=== PATIENT | female | born 1945 | race Caucasian/White ===

== ENCOUNTER 2018-10-15 12:37 | Observation (INO) | payer MEDICARE, SELFPAY ==
[2018-10-15 12:38] VITALS: BP 118/70; PULSE 65; RESP 16; TEMP 36.2; O2SAT 99; BMI 30.9
--- NOTE | 2018-10-15 13:02 | CT_ITS ---
STUDY: CT BRAIN WITHOUT CONTRAST REASON FOR EXAM: Female, 73 years old. Dizziness. History of vertigo. RADIATION DOSAGE (If Supplied By Facility): CTDIvol = ( 44.99 ) mGy, DLP = ( 779.24 ) mGycm TECHNIQUE: Transaxial CT imaging of the brain was performed without administration of intravenous contrast material. Individualized dose optimization techniques were used for this CT. COMPARISON: October 26, 2015. MRI, October 27, 2015. FINDINGS: Normal soft tissue structures. Normal calvarium. Normal size ventricles and extra-axial spaces for the patient's age. Normal white matter tracts of the cerebral hemispheres. Normal basal ganglia and thalami. Normal brainstem. Normal cerebellum. There is no intracranial hemorrhage. There are no findings of an acute ischemic infarction. Normal visualized paranasal sinuses. CT/Brain/Head without Contrast IMPRESSION: Normal unenhanced CT scan of the brain. Electronically Signed: Deangelo Hoff DO at 15:08 EDT Tel [phone], Service support ,
--- NOTE | 2018-10-15 13:04 | ED.DCSUM_ITS ---
- ER Visit Summary Date of Service: 10/15/18 Chief Complaint: Dizzy History of Present Illness: The patient is a 73 F sudden dizzy with room spinning after waking at 6 AM. Worse with head turning. Nausea without vomiting. Chronic tinnitus. History of Cipro years ago. She has done meclizine in the past and she is on Ativan for anxiety at least twice a day. None taken today. History of TIA in the past there is been no speech changes or hemiparesis or weakness. No recent sinus congestion or ear pain. No chest pain or shortness of breath. Physical Examination: General: Alert and oriented ?3, no acute distress HEENT: Normocephalic, atraumatic. Moist mucosa membranes. No nystagmus Neck: supple, nontender. Cardiovascular: Regular rate and rhythm, no murmurs Respiratory: Normal breath sounds, symmetric, no distress Abdomen: Soft, nontender, nondistended Extremities: Nontender, no edema, pulses intact ?4 Neuro: no focal neurological deficits. Negative Lucas-Hallpike bilaterally, however symptomatic with laying down and sitting up. Test Results: CT head negative. Hemoglobin 15, potassium 3.7 creatinine 0.88. Emergency Department Course and Treatment: Vital signs stable, no focal neurological deficits. She did have vertigo symptoms without nystagmus. [place]- Hallpike was negative. Treated with IV fluids, Phenergan labs stable. CT head negative. Reevaluation states mild improvement after Phenergan however still feels symptoms. Attempt to ambulate the patient myself in the room to the restroom she is unstable. With continued symptomatic vertigo, will speak with hospitalist for admission. Treatment Plan: [] Disposition: Admission Impression: Symptomatic vertigo This note was generated with [employer] dictation software. It may contain incorrect words, spelling, and punctuation that were not noted in review of the chart prior to signing ED Disposition - Plan for ED Patient: Disposition: Acute Care Hospital [facility] Diagnosis: Symptomatic vertigo Referrals: Jorge Carbajal DO [Primary Care Provider] -
--- NOTE | 2018-10-15 13:24 | EKG12_ITS ---
Test Reason : DIZZINESS Blood Pressure : / mmHG Vent. Rate : 074 BPM Atrial Rate : 074 BPM P-R Int : 166 ms QRS Dur : 082 ms QT Int : 426 ms P-R-T Axes : 092 009 038 degrees QTc Int : 472 ms Normal sinus rhythm Nonspecific ST and T wave abnormality Prolonged QT Abnormal ECG Confirmed by RITO RAMSAY, LOU ([id number]), video effects editor PASCALE CATHERINE ([id number]) on 10/17/2018 11:25:15 AM Referred By: Jose Day Confirmed By:LOU VERAS MD
[2018-10-15] MEDS: proMETHazine 25 MG/ML Syringe 6.25 MG IV (13:35)
[2018-10-15 13:44] LABS: Absolute Lymphocyte Count 0.94 X10^3/ul (0.83-4.51); Absolute Neutrophil Count 5.2 X10^3/uL (2.0-7.7); Basophil# 0.03 X10^3/uL; Basophil% 0.4 % (0-1); Eosinophil# 0.05 X10^3/uL; Eosinophils% 0.7 % (0-5); Hematocrit 45.8 % (37-47); Hemoglobin 15.1 g/dl (12.0-15.0); Lymphocyte # 0.94 X10^3/ul (4.0); Lymphocyte % 13.6 % (19-41); Mean Corpuscular Hgb 29.7 pg (27.0-32.0); Mean Platelet Vol. 9.3 fl (6.2-12.0); Monocyte# 0.72 X10^3/uL; Monocyte% 10.4 % (0-10); Neutrophil # 5.15 X10^3/uL (2.7-7.7); Neutrophil % 74.8 % (47-70); POSITIVE COUNT NO; POSITIVE DIFFERENTIAL NO; POSITIVE MORPHOLOGY NO; Platelet Count 311 K/mm3 (150-450); RBC Distribution Width SD 42.6 fl (35.1-43.9); Red Blood Count 5.09 M/mm3 (4.2-5.4); White Blood Count 6.9 K/mm3 (4.4-11.0)
[2018-10-15 14:01] LABS: Anion Gap 9 (5-15); BUN 14 mg/dL (7-18); BUN/Creat Ratio 15.8 RATIO (10-20); Calcium,Total 9.8 mg/dL (8.5-10.1); Chloride 108 mmol/L (98-107); Creatinine, Serum 0.88 mg/dL (0.55-1.02); EST Glomerular Filtration Rate 67 mL/min (>60); Est Glom Filt Rate - Afr Amer 81 mL/min (>60); Glucose 103 mg/dL (74-106); Potassium 3.7 mmol/L (3.5-5.1); Sodium Level 140 mmol/L (136-145)
[2018-10-15 14:50] VITALS: BP 147/63; PULSE 78; RESP 15; O2SAT 94
--- NOTE | 2018-10-15 16:38 | PCM.HP.STD ---
<John Barone - Last Filed: 10/15/18 16:38> Problem List (1) Vertigo Status: Acute (2) Tinnitus Status: Chronic (3) TIA (transient ischemic attack) Status: Chronic (4) Diabetes mellitus Status: Chronic Comment: Diet controlled (5) Mild intermittent asthma Status: Chronic History of Present Illness Date of Admission: 10/15/18 Chief Complaint: vertigo The patient is a 73 year old F with a pmhx of chronic vertigo, TIA, asthma, anxiety, who presents to the ER with worsening of vertigo. Her chronic veritgo has been controlled lately, this AM she woke up and got out of bed, and on standing, she experienced a severe spinning sensation. She fell into a wall and did not injure herself. She attempted to do home lesia maneuvers but this did not help. Her symptoms are worse with moving her head to either side and better sitting still. She had some nausea without vomiting. She later in the ER had a brief episode where her left arm felt suddenly weak and numb that went completely away, followed by both legs going numb and then resolving. No double vision or blurry vision. She currently has no focal weakness or numbness.[] Past Medical History Past Medical History (Chronic Problems): Chronic Problems Tinnitus (Chronic) TIA (transient ischemic attack) (Chronic) Dependent edema (Chronic) Mild intermittent asthma (Chronic) Diabetes mellitus (Chronic) Diet controlled Allergies azithromycin [From Zithromax] Allergy (Verified 10/15/18 12:46) Hives Sulfa (Sulfonamide Antibiotics) Allergy (Verified 10/15/18 12:46) Hives Home Medications: Ambulatory Orders Medication Instructions Recorded Albuterol Aerosols [Ventolin 2.5 mg INHALATION DAILY 10/26/15 Aerosols] Calcium Carbonate [Calcium] 600 mg PO BID 10/26/15 Cholecalciferol (VIT D3) [Vitamin 2,000 unit PO DAILY 10/26/15 D3] Lorazepam [Ativan] 0.5 mg PO TID PRN PRN 10/26/15 Montelukast [Singulair] 10 mg PO QHS 10/26/15 [place]-3 Fatty Acids [Fish Oil] 1,200 mg PO DAILY 10/26/15 Vitamin B Complex 1 each PO DAILY 10/26/15 Aspirin E.C. [Ecotrin] 81 mg PO DAILY@0800 #30 tablet 04/03/16 Atorvastatin Calcium [Lipitor] 10 mg PO QHS 06/19/16 Surgical History: arthroscopy, knee, hysterectomy, - - Bilateral carpal tunnel release RAY BSO bilateral cataract extraction tonsillectomy remote right and left knee arthroscopy, remote Psychiatric History: Anxiety [employer] History: No pertinent [employer] history Lives: Spouse/ Significant Other Smoking Status: Never smoker Tobacco Use: Non-smoker Alcohol: None Drugs: None - *Family History Paternal History Items: Diabetes, Dementia, Heart Disease, Stroke Maternal History Items: - - Migraines cervical cancer Review of Systems Constitutional: Denies: Chills, Fever, Weight Change HEENT: Denies: Head Aches, Sinus Congestion, Sinus Drainage Cardiovascular: Denies: Chest Pain, Palpitations Respiratory: Denies: Cough, Shortness of breath at rest, Sputum production Gastrointestinal: Denies: Abdominal Pain, Nausea, Vomiting Genitourinary: Denies: Dysuria Musculoskeletal: Denies: Joint Pain, Joint Tenderness Skin: Denies: Rash, Wounds Neurological: Reports: Balance problems, Focal weakness, Incoordination, Numbness. Denies: Blurred vision, Double vision, Slurred speech, Confusion, Tingling Psychiatric: Denies: Anxiety, Depression, Homicidal Ideations, Suicidal Ideations Hematologic/ Lymphatic: Denies: Easy Bruising, Easy Bleeding VTE Information - Inpt Only VTE Present on Admission: No VTE Mechan Device Prophylaxis: None VTE Pharm Prophylaxis ordered?: Yes - Physical Exam General: Alert, Oriented x3, Cooperative HEENT: Atraumatic, PERRLA, EOMI, Normocephalic Neck: Supple, No JVD, Negative Carotid Bruits Lungs: Clear to auscultation, Normal air movement Cardiovascular: Regular rate, No murmurs Abdomen: Bowel Sounds Present, Soft, Non Tender Extremities: No edema, Capillary Refill Less than 3 Seconds Skin: No rashes, No breakdown Musculoskeletal: No Tenderness to Palpation of Joints or Extremities Neurological: Cranial nerves II-XII grossly intact Psych/Mental Status: Normal Affect, Appropriate, Alert and oriented to time, place, person, mood and affect Vital Signs Temp Pulse Resp BP Pulse Ox 97.2 F L 78 15 147/63 H 94 10/15/18 12:38 10/15/18 14:50 10/15/18 14:50 10/15/18 14:50 10/15/18 14:50 Oxygen Delivery Method Room Air Weight: 175 lb Body Mass Index (BMI) 30.9 Finger Stick Blood Glucose 98 Laboratory Tests Past 24 Hrs 10/15/18 10/15/18 13:35 13:35 WBC 6.9 RBC 5.09 Hgb 15.1 H Hct 45.8 MCV 90.0 MCH 29.7 MCHC 33.0 RDW 13.0 RDW Differential 42.6 Plt Count 311 MPV 9.3 Immature Gran % (Auto) 0.100 Neut % (Auto) 74.8 H Lymph % (Auto) 13.6 L Harris % (Auto) 10.4 H Eos % (Auto) 0.7 Baso % (Auto) 0.4 Absolute Neuts (auto) 5.2 Absolute Lymphs (auto) 0.94 Total Counted Not Reportable Sodium 140 Potassium 3.7 Chloride 108 H Carbon Dioxide 23.0 Anion Gap 9 BUN 14 Creatinine 0.88 Estim Creat Clear Calc 47.80 Est GFR (MDRD) Af Amer 81 Est GFR (MDRD) Non-Af 67 BUN/Creatinine Ratio 15.8 Glucose 103 Calcium 9.8 Assessment/Plan All Active Problems Vertigo (Acute) 1. Vertigo - Hx BPPV. Also did have left arm numbness/weakness transiently. CT brain negative. Check MRI. Hx TIA. On asa/statin already. Neuro exam negative at this time. Labs unremarkable. Lesia maneuvers at home did not help. 2. Chronic tinnitus 3. Asthma - chronic cough. PRN aerosols. Continue singulair. 4. DMt2 - diet controlled 5. Anxiety - has been on prn ativan at home. Did not take any today. DVT ppx: lovenox DC planning: PTOT evals. Fell at home today This patient was seen by John Barone PA-C under the supervision of Dr. Day. <Jose Day F - Last Filed: 10/15/18 17:01> History of Present Illness The patient is a 73 year old F [] Past Medical History Allergies azithromycin [From Zithromax] Allergy (Verified 10/15/18 12:46) Hives Sulfa (Sulfonamide Antibiotics) Allergy (Verified 10/15/18 12:46) Hives - Physical Exam Vital Signs Temp Pulse Resp BP Pulse Ox 97.2 F L 78 15 147/63 H 94 10/15/18 12:38 10/15/18 14:50 10/15/18 14:50 10/15/18 14:50 10/15/18 14:50 Oxygen Delivery Method Room Air Weight: 175 lb Body Mass Index (BMI) 30.9 Finger Stick Blood Glucose 98 Laboratory Tests Past 24 Hrs 10/15/18 10/15/18 13:35 13:35 WBC 6.9 RBC 5.09 Hgb 15.1 H Hct 45.8 MCV 90.0 MCH 29.7 MCHC 33.0 RDW 13.0 RDW Differential 42.6 Plt Count 311 MPV 9.3 Immature Gran % (Auto) 0.100 Neut % (Auto) 74.8 H Lymph % (Auto) 13.6 L Harris % (Auto) 10.4 H Eos % (Auto) 0.7 Baso % (Auto) 0.4 Absolute Neuts (auto) 5.2 Absolute Lymphs (auto) 0.94 Total Counted Not Reportable Sodium 140 Potassium 3.7 Chloride 108 H Carbon Dioxide 23.0 Anion Gap 9 BUN 14 Creatinine 0.88 Estim Creat Clear Calc 47.80 Est GFR (MDRD) Af Amer 81 Est GFR (MDRD) Non-Af 67 BUN/Creatinine Ratio 15.8 Glucose 103 Calcium 9.8 Code Visit Addendum: Dr. Day I personally examined the patient and reviewed the chart. I agree with the above. 73-year-old female with a history of anxiety, TIA, chronic tinnitus, and recurrent episodes of vertigo presents with vertigo. She was told by a friend that vertigo could be a sign of stroke and is why she presented to the ER. She does not have any focal weakness and stated that she had a small episode of weakness while the nurses were attempting to put an IV 5 times in her left arm. Once the IV attempts were finished, her weakness resolved. Plan will be to treat for vertigo with meclizine, and if there is no improvement in her symptoms then I did discuss with her the potential of staying until Wednesday for an MRI of the brain to rule out a posterior stroke. She is already on an aspirin and on a statin though she is only on 10 mg of Lipitor and therefore could be increased. OBSV E&M: 89776 Initial observation care L3
[2018-10-15 17:11] VITALS: BP 122/52; PULSE 66; RESP 16; TEMP 36.6; O2SAT 95; BMI 31.1; BMI 31.2
[2018-10-15 17:40] VITALS: O2SAT 95
[2018-10-15] MEDS: Meclizine 12.5 MG Tablet PO (20:18)
[2018-10-15] MEDS: LORazepam 0.5 MG Tablet PO (20:18)
[2018-10-15 20:40] VITALS: BP 135/60; PULSE 71; RESP 18; TEMP 36.7; O2SAT 94
[2018-10-15] MEDS: Atorvastatin Calcium 10 MG Tablet PO (21:37)
[2018-10-15] MEDS: Montelukast 10 MG Tablet PO (21:37)
[2018-10-15] MEDS: Heparin Injection (Vial) 5,000 UNIT/ML VIAL 5000 UNIT SC (21:37)
[2018-10-16 02:34] VITALS: BP 114/52; PULSE 72; RESP 16; TEMP 36.6; O2SAT 94
[2018-10-16 06:15] LABS: Absolute Lymphocyte Count 0.82 X10^3/ul (0.83-4.51); Basophil# 0.03 X10^3/uL; Basophil% 0.7 % (0-1); Eosinophil# 0.18 X10^3/uL; Hematocrit 41.5 % (37-47); Hemoglobin 13.4 g/dl (12.0-15.0); Lymphocyte # 0.82 X10^3/ul (4.0); Lymphocyte % 18.1 % (19-41); Mean Corp Hgb Conc 32.3 g/gl (32-36); Mean Corpuscular Hgb 29.9 pg (27.0-32.0); Mean Corpuscular Volume 92.6 fL (81-99); Monocyte# 0.52 X10^3/uL; Monocyte% 11.5 % (0-10); Neutrophil # 2.96 X10^3/uL (2.7-7.7); Neutrophil % 65.5 % (47-70); Platelet Count 217 K/mm3 (150-450); RBC Distribution Width CV 13.1 % (11.6-14.6); RBC Distribution Width SD 43.4 fl (35.1-43.9); Red Blood Count 4.48 M/mm3 (4.2-5.4); White Blood Count 4.5 K/mm3 (4.4-11.0)
[2018-10-16 06:17] LABS: POSITIVE COUNT NO; POSITIVE DIFFERENTIAL NO; POSITIVE MORPHOLOGY NO
[2018-10-16 06:39] LABS: Anion Gap 7 (5-15); BUN 15 mg/dL (7-18); Calcium,Total 8.7 mg/dL (8.5-10.1); Chloride 111 mmol/L (98-107); Creatinine, Serum 0.72 mg/dL (0.55-1.02); EST Glomerular Filtration Rate 85 mL/min (>60); Est Glom Filt Rate - Afr Amer 103 mL/min (>60); Estimated Creatinine Clearance 42.07 ml/min; Glucose 95 mg/dL (74-106); Sodium Level 143 mmol/L (136-145)
[2018-10-16 06:56] VITALS: PULSE 78; RESP 18; O2SAT 93
[2018-10-16] MEDS: Albuterol 2.5 MG/3 ML VIAL.NEB. INHALATION (06:56)
[2018-10-16] MEDS: Aspirin E.C. 81 MG Tablet PO (07:49)
[2018-10-16] MEDS: Spironolactone 25 MG Tablet PO (07:49)
[2018-10-16 07:50] VITALS: O2SAT 96
[2018-10-16 07:54] VITALS: BP 121/57; PULSE 75; RESP 14; TEMP 36.4; O2SAT 96
[2018-10-16] MEDS: Heparin Injection (Vial) 5,000 UNIT/ML VIAL 5000 UNIT SC ×2 (09:36→21:59)
[2018-10-16] MEDS: LORazepam 0.5 MG Tablet PO ×2 (09:37→21:58)
[2018-10-16] MEDS: Meclizine 12.5 MG Tablet PO ×2 (09:37→21:58)
--- NOTE | 2018-10-16 11:43 | PCM.PN.HOSP ---
Subjective: The patient is still feeling dizzy and lightheaded. Patient also complained of gait instability/incoordination yesterday although she walks good usually. She has history of chronic dizziness and tinnitus. She has seen ENT doctor in the past and is going to see Dr. Hodges in a month or two. She was admitted because of vertigo that was new for her. Vitals/I&O's: Vital Signs Temp Pulse Resp BP Pulse Ox 97.5 F L 75 14 121/57 H 96 10/16/18 07:54 10/16/18 07:54 10/16/18 07:54 10/16/18 07:54 10/16/18 07:54 Oxygen Delivery Method Room Air Weight: 175 lb 14.862 oz Body Mass Index (BMI) 31.1 Finger Stick Blood Glucose 98 Intake and Output for Last 24 Hours 10/14/18 10/15/18 10/16/18 23:59 23:59 23:59 Intake Total 300 / 300 200 / 200 Balance 300 / 300 200 / 200 General: Alert, Oriented x3, Cooperative HEENT: Atraumatic, PERRLA, EOMI, Normocephalic Neck: Supple, No JVD, Negative Carotid Bruits Lungs: Clear to auscultation, Normal air movement Cardiovascular: Regular rate, Regular Rhythm, Normal S1, Normal S2, No murmurs Abdomen: Bowel Sounds Present, Soft, Non Tender, Non-Distended Extremities: No edema, Capillary Refill Less than 3 Seconds Skin: No rashes, No breakdown Musculoskeletal: No Tenderness to Palpation of Joints or Extremities, Arthritic Changes - Lower back and C-spine Neurological: Cranial nerves II-XII grossly intact, Deep Tendon Reflexes 2+/4 and Symmetrical, Neuro grossly intact Psych/Mental Status: Normal Affect, Appropriate Laboratory Results 10/15/18 13:35: WBC 6.9, RBC 5.09, Hgb 15.1 H, Hct 45.8, MCV 90.0, MCH 29.7, MCHC 33.0, RDW 13.0, RDW Differential 42.6, Plt Count 311, MPV 9.3, Immature Gran % (Auto) 0.100, Neut % (Auto) 74.8 H, Lymph % (Auto) 13.6 L, [place] % (Auto) 10.4 H, Eos % (Auto) 0.7, Baso % (Auto) 0.4, Absolute Neuts (auto) 5.2, Absolute Lymphs (auto) 0.94, Total Counted Not Reportable 10/15/18 13:35: Sodium 140, Potassium 3.7, Chloride 108 H, Carbon Dioxide 23.0, Anion Gap 9, BUN 14, Creatinine 0.88, Estim Creat Clear Calc 47.80, Est GFR (MDRD) Af Amer 81, Est GFR (MDRD) Non-Af 67, BUN/Creatinine Ratio 15.8, Glucose 103, Calcium 9.8 10/16/18 05:37: WBC 4.5, RBC 4.48, Hgb 13.4, Hct 41.5, MCV 92.6, MCH 29.9, MCHC 32.3, RDW 13.1, RDW Differential 43.4, Plt Count 217, MPV 10.0, Immature Gran % (Auto) 0.200, Neut % (Auto) 65.5, Lymph % (Auto) 18.1 L, [place] % (Auto) 11.5 H, Eos % (Auto) 4.0, Baso % (Auto) 0.7, Absolute Neuts (auto) 3.0, Absolute Lymphs (auto) 0.82 L, Total Counted Not Reportable 10/16/18 05:37: Sodium 143, Potassium 4.0, Chloride 111 H, Carbon Dioxide 25.0, Anion Gap 7, BUN 15, Creatinine 0.72, Estim Creat Clear Calc 42.07, Est GFR (MDRD) Af Amer 103, Est GFR (MDRD) Non-Af 85, BUN/Creatinine Ratio 21.0 H, Glucose 95, Calcium 8.7 Current Medications Albuterol Sulfate (Ventolin Aerosols) 2.5 mg INHALATION DAILY [facility] Last Admin: 10/16/18 06:56 Dose: 2.5 mg Aspirin (Ecotrin) 81 mg PO DAILY@0800 [facility] Last Admin: 10/16/18 07:49 Dose: 81 mg Atorvastatin Calcium (Lipitor) 10 mg PO QHS [facility] Last Admin: 10/15/18 21:37 Dose: 10 mg Heparin Sodium (Porcine) (Heparin Na) 5,000 unit SC Q12 [facility] Last Admin: 10/16/18 09:36 Dose: 5,000 unit Lorazepam (Ativan) 0.5 mg PO TID PRN PRN PRN Reason: ANXIETY Last Admin: 10/16/18 09:37 Dose: 0.5 mg Magnesium Hydroxide (Milk Of Magnesia) 30 ml PO DAILY PRN PRN PRN Reason: Constipation Meclizine HCl (Antivert) 12.5 mg PO TID PRN PRN PRN Reason: DIZZINESS Last Admin: 10/16/18 09:37 Dose: 12.5 mg Montelukast Sodium (Singulair) 10 mg PO QHS [facility] Last Admin: 10/15/18 21:37 Dose: 10 mg Sodium Chloride () 5 - 15 ml IV UD PRN PRN Reason: SALINE FLUSH Spironolactone (Aldactone) 25 mg PO DAILYCM [facility] Last Admin: 10/16/18 07:49 Dose: 25 mg Medical Necessity - Tobacco Use Smoking Status: Never smoker Tobacco Use: Non-smoker Assessment/Plan All Active Problems Vertigo (Acute) This is a 73-year-old female with history of chronic dizziness and lightheadedness and tinnitus, TIA was admitted for worsening symptoms of vertigo and gait incoordination. 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 Denies blurry vision. Denies focal weakness or new paresthesia. 1. Vertigo with history of chronic dizziness and tinnitus most probably peripheral , BPPV. Also did have left arm numbness/weakness transiently. CT brain negative. MRI C-spine and brain tomorrow morning. Hx TIA. On asa/statin already. Neuro exam negative at this time. Labs unremarkable. PT and OT ordered for Josee maneuver 2. Chronic tinnitus 3. Asthma - chronic cough. PRN aerosols. Continue singulair. 4. DMt2 - diet controlled 5. Anxiety - has been on prn ativan at home. Did not take any today. DVT ppx: lovenox PTOT evals. Fell at home before admission. Code Visit OBSV E&M: 41639 Subsequent observation care L2
--- NOTE | 2018-10-16 11:49 | PN_ITS ---
Subjective: The patient is still feeling dizzy and lightheaded. Patient also complained of gait instability/incoordination yesterday although she walks good usually. She has history of chronic dizziness and tinnitus. She has seen ENT doctor in the past and is going to see Dr. Hodges in a month or two. She was admitted because of vertigo that was new for her. Vitals/I&O's: Vital Signs Temp Pulse Resp BP Pulse Ox 97.5 F L 75 14 121/57 H 96 10/16/18 07:54 10/16/18 07:54 10/16/18 07:54 10/16/18 07:54 10/16/18 07:54 Oxygen Delivery Method Room Air Weight: 175 lb 14.862 oz Body Mass Index (BMI) 31.1 Finger Stick Blood Glucose 98 Intake and Output for Last 24 Hours 10/14/18 10/15/18 10/16/18 23:59 23:59 23:59 Intake Total 300 / 300 200 / 200 Balance 300 / 300 200 / 200 General: Alert, Oriented x3, Cooperative HEENT: Atraumatic, PERRLA, EOMI, Normocephalic Neck: Supple, No JVD, Negative Carotid Bruits Lungs: Clear to auscultation, Normal air movement Cardiovascular: Regular rate, Regular Rhythm, Normal S1, Normal S2, No murmurs Abdomen: Bowel Sounds Present, Soft, Non Tender, Non-Distended Extremities: No edema, Capillary Refill Less than 3 Seconds Skin: No rashes, No breakdown Musculoskeletal: No Tenderness to Palpation of Joints or Extremities, Arthritic Changes - Lower back and C-spine Neurological: Cranial nerves II-XII grossly intact, Deep Tendon Reflexes 2+/4 and Symmetrical, Neuro grossly intact Psych/Mental Status: Normal Affect, Appropriate Laboratory Results 10/15/18 13:35: WBC 6.9, RBC 5.09, Hgb 15.1 H, Hct 45.8, MCV 90.0, MCH 29.7, MCHC 33.0, RDW 13.0, RDW Differential 42.6, Plt Count 311, MPV 9.3, Immature Gran % (Auto) 0.100, Neut % (Auto) 74.8 H, Lymph % (Auto) 13.6 L, [place] % (Auto) 10.4 H, Eos % (Auto) 0.7, Baso % (Auto) 0.4, Absolute Neuts (auto) 5.2, Absolute Lymphs (auto) 0.94, Total Counted Not Reportable 10/15/18 13:35: Sodium 140, Potassium 3.7, Chloride 108 H, Carbon Dioxide 23.0, Anion Gap 9, BUN 14, Creatinine 0.88, Estim Creat Clear Calc 47.80, Est GFR (MDRD) Af Amer 81, Est GFR (MDRD) Non-Af 67, BUN/Creatinine Ratio 15.8, Glucose 103, Calcium 9.8 10/16/18 05:37: WBC 4.5, RBC 4.48, Hgb 13.4, Hct 41.5, MCV 92.6, MCH 29.9, MCHC 32.3, RDW 13.1, RDW Differential 43.4, Plt Count 217, MPV 10.0, Immature Gran % (Auto) 0.200, Neut % (Auto) 65.5, Lymph % (Auto) 18.1 L, [place] % (Auto) 11.5 H, Eos % (Auto) 4.0, Baso % (Auto) 0.7, Absolute Neuts (auto) 3.0, Absolute Lymphs (auto) 0.82 L, Total Counted Not Reportable 10/16/18 05:37: Sodium 143, Potassium 4.0, Chloride 111 H, Carbon Dioxide 25.0, Anion Gap 7, BUN 15, Creatinine 0.72, Estim Creat Clear Calc 42.07, Est GFR (MDRD) Af Amer 103, Est GFR (MDRD) Non-Af 85, BUN/Creatinine Ratio 21.0 H, Glucose 95, Calcium 8.7 Current Medications Albuterol Sulfate (Ventolin Aerosols) 2.5 mg INHALATION DAILY [facility] Last Admin: 10/16/18 06:56 Dose: 2.5 mg Aspirin (Ecotrin) 81 mg PO DAILY@0800 [facility] Last Admin: 10/16/18 07:49 Dose: 81 mg Atorvastatin Calcium (Lipitor) 10 mg PO QHS [facility] Last Admin: 10/15/18 21:37 Dose: 10 mg Heparin Sodium (Porcine) (Heparin Na) 5,000 unit SC Q12 [facility] Last Admin: 10/16/18 09:36 Dose: 5,000 unit Lorazepam (Ativan) 0.5 mg PO TID PRN PRN PRN Reason: ANXIETY Last Admin: 10/16/18 09:37 Dose: 0.5 mg Magnesium Hydroxide (Milk Of Magnesia) 30 ml PO DAILY PRN PRN PRN Reason: Constipation Meclizine HCl (Antivert) 12.5 mg PO TID PRN PRN PRN Reason: DIZZINESS Last Admin: 10/16/18 09:37 Dose: 12.5 mg Montelukast Sodium (Singulair) 10 mg PO QHS [facility] Last Admin: 10/15/18 21:37 Dose: 10 mg Sodium Chloride () 5 - 15 ml IV UD PRN PRN Reason: SALINE FLUSH Spironolactone (Aldactone) 25 mg PO DAILYCM [facility] Last Admin: 10/16/18 07:49 Dose: 25 mg Medical Necessity - Tobacco Use Smoking Status: Never smoker Tobacco Use: Non-smoker Assessment/Plan All Active Problems Vertigo (Acute) This is a 73-year-old female with history of chronic dizziness and lightheadedness and tinnitus, TIA was admitted for worsening symptoms of vertigo and gait incoordination. 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 Denies blurry vision. Denies focal weakness or new paresthesia. 1. Vertigo with history of chronic dizziness and tinnitus most probably peripheral , BPPV. Also did have left arm numbness/weakness transiently. CT brain negative. MRI C-spine and brain tomorrow morning. Hx TIA. On asa/statin already. Neuro exam negative at this time. Labs unremarkable. PT and OT ordered for Josee maneuver 2. Chronic tinnitus 3. Asthma - chronic cough. PRN aerosols. Continue singulair. 4. DMt2 - diet controlled 5. Anxiety - has been on prn ativan at home. Did not take any today. DVT ppx: lovenox PTOT evals. Fell at home before admission. Code Visit OBSV E&M: 34130 Subsequent observation care L2
[2018-10-16 15:05] VITALS: BP 122/66; PULSE 75; RESP 14; TEMP 36.6; O2SAT 96
[2018-10-16 20:28] VITALS: BP 119/52; PULSE 67; RESP 18; TEMP 36.8; O2SAT 94
[2018-10-16] MEDS: 0.9% NaCl Peripheral Flush Adult/Peds IV (21:58)
[2018-10-16] MEDS: Montelukast 10 MG Tablet PO (21:59)
[2018-10-16] MEDS: Atorvastatin Calcium 10 MG Tablet PO (21:59)
[2018-10-17 02:30] VITALS: BP 131/56; PULSE 75; RESP 18; TEMP 36.4; O2SAT 94
--- NOTE | 2018-10-17 05:55 | MRI_ITS ---
STUDY: MRI BRAIN WITHOUT CONTRAST REASON FOR EXAM: Female, 73 years old. Vertigo and dizziness TECHNIQUE: Standardized multiplanar fat and water weighted pulse sequences were obtained. COMPARISON: CT head 10/15/2018 and MRI brain 10/27/2015. FINDINGS: Normal size of the ventricles and extra-axial spaces for the patient's age. There are a limited number of small white matter hyperintensities, distributed throughout the deep white matter tracts of the cerebral hemispheres, consistent with mild chronic white matter ischemic changes. Normal bilateral basal ganglia. Normal thalami. There is no extra-axial fluid accumulation. Normal flow voids within the major intracranial circulation suggesting patency by spin echo criteria. Normal sella turcica, pituitary gland, infundibular stalk, optic chiasm and hypothalamus. Normal tectal plate and pineal gland. Normal midbrain, jc and medulla. Normal cerebellum. Normal basal cisterns. Normal bilateral temporal bones. Normal bilateral internal auditory canals. No demonstrated orbital abnormality, within the constraints of a routine brain study. Normal visualized paranasal sinuses. Normal calvarium and skull base. Normal visualized soft tissue structures. Normal visualized upper cervical spine. MRI/Brain without Contrast IMPRESSION: No acute intracranial abnormality. Chronic findings are described above. Electronically Signed: Shilpa Katja, at 10:33 EDT Tel , Service support ,
--- NOTE | 2018-10-17 05:55 | MRI_ITS ---
STUDY: MRI CERVICAL SPINE WITHOUT CONTRAST REASON FOR EXAM: Female, 73 years old. Neck pain TECHNIQUE: Standardized fat and water weighted pulse sequences were obtained in the sagittal and axial planes. COMPARISON: Cta neck 10/26/2015 FINDINGS: Normal foramen magnum and brainstem-cervical cord junction. Normal craniovertebral junction. Normal anterior atlantoaxial articulation. Normal odontoid process. Normal cervical lordosis. Normal vertebral bodies and posterior osseous elements. C2-3: Normal endplates. Normal disc height, signal and morphology. Normal central canal and intervertebral neural foramina. C3-4: Normal endplates. There is annular disc bulge with mild ventral thecal sac narrowing. No central canal narrowing. There is bilateral uncovertebral and facet hypertrophy, left greater than right with marked left and mild right foraminal narrowing. C4-5: There is grade 1 anterolisthesis of C4 on C5. C5-6: There is annular disc bulge and mild to moderate ventral thecal sac narrowing. No central canal narrowing. There is bilateral uncovertebral hypertrophy causing marked right and moderate left foraminal narrowing. C6-7: There is annular disc bulge as well as central disc protrusion abutting the ventral spinal cord. No central canal narrowing. There are small bilateral foraminal cyst measuring up to 6 mm on the left. C7-T1: There is grade 1 anterolisthesis of C7 on T1. Normal cervical cord. Normal visualized soft tissue structures. MRI/Spine Cervical (Routine) IMPRESSION: Multilevel degenerative disc disease is most prominent at C3-C4, C5-C6 and C6-C7. Electronically Signed: Shilpa Hightower, at 10:07 EDT Tel , Service support ,
[2018-10-17 06:21] LABS: Cholesterol 154 mg/dL (200); High Density Lipoprotein 69 mg/dL; Triglycerides 88 mg/dL; Very Low Density Lipoprotein 18 mg/dL (5-40)
[2018-10-17] MEDS: Albuterol 2.5 MG/3 ML VIAL.NEB. INHALATION (06:47)
[2018-10-17 07:10] VITALS: PULSE 76; RESP 18
[2018-10-17] MEDS: LORazepam 0.5 MG Tablet PO (08:09)
[2018-10-17] MEDS: Aspirin E.C. 81 MG Tablet PO (08:11)
[2018-10-17 08:12] VITALS: BP 106/53; PULSE 83; RESP 18; TEMP 36.6; O2SAT 95
--- NOTE | 2018-10-17 08:16 | NURSING ---
pt off unit to MRI. Ativan given.
[2018-10-17] MEDS: Meclizine 12.5 MG Tablet PO (10:02)
[2018-10-17] MEDS: Spironolactone 25 MG Tablet PO (10:02)
[2018-10-17] MEDS: Heparin Injection (Vial) 5,000 UNIT/ML VIAL 5000 UNIT SC (10:02)
[2018-10-17 10:05] VITALS: BP 124/61
--- NOTE | 2018-10-17 11:36 | DCINST_ITS ---
- Discharge Diagnoses Current Active Problems: Current Active and Chronic Problems Tinnitus (Chronic) You will use the following diet at home:: Calorie/Carbohydrate Controlled (specify 1200, 1400, etc) - 1800 reggie / day, Cardiac Your food should be the consistency of: Regular Your liquids should be the consistency of: Regular/Thin Discharge Activity: May Not Drive Allergies/Adverse Reactions: Allergies azithromycin [From Zithromax] Allergy (Verified 10/15/18 12:46) Hives Sulfa (Sulfonamide Antibiotics) Allergy (Verified 10/15/18 12:46) Hives Medications to take at Discharge Albuterol Aerosols [Ventolin Aerosols] 2.5 mg INHALATION DAILY 10/26/15 Calcium Carbonate [Calcium] 600 mg PO BID 10/26/15 Cholecalciferol (VIT D3) [Vitamin D3] 2,000 unit PO DAILY 10/26/15 Lorazepam [Ativan] 0.5 mg PO TID PRN PRN 10/26/15 Montelukast [Singulair] 10 mg PO QHS 10/26/15 [place]-3 Fatty Acids [Fish Oil] 1,200 mg PO DAILY 10/26/15 Vitamin B Complex 1 each PO DAILY 10/26/15 Aspirin E.C. [Ecotrin] 81 mg PO DAILY@0800 #30 tablet 10/27/15 Atorvastatin Calcium [Lipitor] 10 mg PO QHS 06/19/16 Spironolactone 25 mg PO DAILY 10/15/18 Primary Care Physician: Jorge Carbajal DO [Primary Care Provider] - Please follow up with your Primary Care Physician in: 1-2 weeks Test Results: Test results from this visit will be discussed in further detail at your follow- up appointment, if applicable. Please Follow Up With: Yosef Hodges MD When: 1-2 weeks Please Follow Up With: Outpatient therapy When: Tomorrow Proposed Discharge Date: 10/17/18
--- NOTE | 2018-10-17 12:10 | CASEMGMT ---
LUNA TRACY in to discuss CANCINO form with patient. CANCINO form explained and patient voiced understanding. Form signed and filed in chart, copy provided to patient. LUNA TRACY received script for outpatient PT vestibular therapy and provided to patient. Patient voice no further needs or concerns at this time.
[2018-10-17 12:20] VITALS: BP 122/54; PULSE 66; RESP 18; TEMP 36.6; O2SAT 95
--- NOTE | 2018-10-17 14:05 | PCM.DC.SUM ---
<John Barone - Last Filed: 10/17/18 14:05> Discharge Date and Diagnosis Date of Admission: 10/15/18 Date of Discharge: 10/17/18 - Primary Discharge Diagnosis BPPV, CVA ruled out DDD with radiculopathy Tinnitus hx TIA DMt2 diet controlled Hx asthma - Secondary Discharge Diagnosis Chronic Problems Tinnitus (Chronic) TIA (transient ischemic attack) (Chronic) Dependent edema (Chronic) Mild intermittent asthma (Chronic) Diabetes mellitus (Chronic) Diet controlled Hospital Course and Treatment Imaging Results: CT/Brain/Head without Contrast IMPRESSION: Normal unenhanced CT scan of the brain. MRI/Brain without Contrast IMPRESSION: No acute intracranial abnormality. Chronic findings are described above. MRI/Spine Cervical (Routine) IMPRESSION: Multilevel degenerative disc disease is most prominent at C3-C4, C5-C6 and C6-C7. Operations: None Procedures: None Summary of Care Provided: Hospital course: The patient is a 73 year old F with past medical history of chronic peripheral vertigo, history of TIA, history of asthma, history of tinnitus, who presented to the emergency room with worsening of chronic vertigo at home the morning of presentation and difficulty ambulating. She also experienced an episode of numbness in her left arm. In the emergency room CT of the brain was negative. She had positive [place]-Hallpike and short-term relief with Josee maneuver. However she did have the episode of paresthesias in her left arm in the ER. She was admitted for peripheral versus central vertigo. She was given as needed meclizine. PT and OT were ordered. Vestibular therapy did improve her symptoms. An MRI of the brain was obtained and indicated no acute issues. An MRI of the C-spine was obtained which did demonstrate multilevel degenerative disc disease most prominent at C3-C4, C5-C6, and C6-C7. Is felt that her paresthesias were likely radicular in origin. Patient was discharged home in stable condition. We ordered outpatient vestibular therapy for her. We advised her to follow-up with her ENT Dr. Hodges in 1-2 weeks, and with her PCP in 1-2 weeks. This patient was seen by John Barone PA-C under the supervision of Doctor Mario. [] - Physical Exam General: Alert, Oriented x3, Cooperative HEENT: Atraumatic, PERRLA, EOMI, Normocephalic Neck: Supple, No JVD, Negative Carotid Bruits Lungs: Clear to auscultation, Normal air movement Cardiovascular: Regular rate, No murmurs Abdomen: Bowel Sounds Present, Soft, Non Tender Extremities: No edema, Capillary Refill Less than 3 Seconds Skin: No rashes, No breakdown Musculoskeletal: No Tenderness to Palpation of Joints or Extremities Neurological: Cranial nerves II-XII grossly intact Psych/Mental Status: Normal Affect, Appropriate Vital Signs Temp Pulse Resp BP Pulse Ox 97.8 F 66 18 122/54 H 95 10/17/18 12:20 10/17/18 12:20 10/17/18 12:20 10/17/18 12:20 10/17/18 12:20 Oxygen Delivery Method Room Air Weight: 175 lb 14.862 oz Body Mass Index (BMI) 31.1 Finger Stick Blood Glucose 98 Intake and Output for Last 24 Hours 10/15/18 10/16/18 10/17/18 23:59 23:59 23:59 Intake Total 300 / 300 1000 / 1000 520 / 520 Balance 300 / 300 1000 / 1000 520 / 520 Laboratory Tests Past 24 Hrs 10/17/18 05:18 Triglycerides 88 Cholesterol 154 LDL Cholesterol 67 VLDL Cholesterol 18 HDL Cholesterol 69 Discharge Diet: Low fat/ Low Cholesterol, 1800 Calorie Control Diet, 2000 mg Sodium Diet Discharge Activity: May Not Drive Home Medications: Medications to take at Discharge Albuterol Aerosols [Ventolin Aerosols] 2.5 mg INHALATION DAILY 10/26/15 Calcium Carbonate [Calcium] 600 mg PO BID 10/26/15 Cholecalciferol (VIT D3) [Vitamin D3] 2,000 unit PO DAILY 10/26/15 Lorazepam [Ativan] 0.5 mg PO TID PRN PRN 10/26/15 Montelukast [Singulair] 10 mg PO QHS 10/26/15 [place]-3 Fatty Acids [Fish Oil] 1,200 mg PO DAILY 10/26/15 Vitamin B Complex 1 each PO DAILY 10/26/15 Aspirin E.C. [Ecotrin] 81 mg PO DAILY@0800 #30 tablet 10/27/15 Atorvastatin Calcium [Lipitor] 10 mg PO QHS 06/19/16 Spironolactone 25 mg PO DAILY 10/15/18 Primary Care Physician: Jorge Carbajal DO [Primary Care Provider] - Please follow up with your Primary Care Physician in: 1-2 weeks Please Follow Up With: Yosef Hodges MD When: 1-2 weeks Please Follow Up With: Outpatient therapy When: Tomorrow Disposition: Home Minutes spent on discharge:: 35 Patient Condition:: Stable Medical Necessity - Tobacco Use Smoking Status: Never smoker Tobacco Use: Non-smoker Meaningful Use Info Meaningful Use Diagnoses (Choose all that apply): None applicable <Vega Martin - Last Filed: 10/17/18 15:15> Discharge Date and Diagnosis - Secondary Discharge Diagnosis Chronic Problems Tinnitus (Chronic) TIA (transient ischemic attack) (Chronic) Dependent edema (Chronic) Mild intermittent asthma (Chronic) Diabetes mellitus (Chronic) Diet controlled Hospital Course and Treatment Summary of Care Provided: This patient was seen in conjunction with John PATTERSON. I have independently interviewed and examined the patient and reviewed pertinent history, examination findings, laboratory and plan of management. I have reviewed the note and agree with the documented findings with the few additional points. In brief, patient is admitted for dizziness, vertigo which was much more severe than her baseline chronic dizziness and tinnitus. Patient also had gait incoordination and instability. Furthermore, patient had concern of intermittent tingling sensation in both hand and fingers. MRI brain reported no acute issues. MRI C-spine shows multilevel degenerative disc disease as reported above. Patient was advised to follow with PCP and possible outpatient physical therapy personal therapy. Patient vertigo got much better with Josee maneuver. Diagnosis BPPV I have discussed my assessment with John PATTERSON and orders have been reviewed. [] - Physical Exam General: Alert, Oriented x3, Cooperative HEENT: Atraumatic, PERRLA, EOMI, Normocephalic Neck: Supple, No JVD, Negative Carotid Bruits Lungs: Clear to auscultation, Normal air movement, No rhonchi, No wheeze, No rales Cardiovascular: Regular rate, Regular Rhythm, Normal S2, No murmurs Abdomen: Bowel Sounds Present, Soft, Non Tender, Non-Distended Extremities: No edema, Capillary Refill Less than 3 Seconds Skin: No rashes, No breakdown Musculoskeletal: No Tenderness to Palpation of Joints or Extremities, Arthritic Changes Neurological: Cranial nerves II-XII grossly intact, Deep Tendon Reflexes 2+/4 and Symmetrical, Neuro grossly intact, Motor Exam 5/5 strength throughout, - - Patient vertigo responded well with Josee maneuver. Psych/Mental Status: Normal Affect, Appropriate Vital Signs Temp Pulse Resp BP Pulse Ox 97.8 F 66 18 122/54 H 95 10/17/18 12:20 10/17/18 12:20 10/17/18 12:20 10/17/18 12:20 10/17/18 12:20 Oxygen Delivery Method Room Air Weight: 175 lb 14.862 oz Body Mass Index (BMI) 31.1 Finger Stick Blood Glucose 98 Intake and Output for Last 24 Hours 10/15/18 10/16/18 10/17/18 23:59 23:59 23:59 Intake Total 300 / 300 1000 / 1000 520 / 520 Balance 300 / 300 1000 / 1000 520 / 520 Laboratory Tests Past 24 Hrs 10/17/18 05:18 Triglycerides 88 Cholesterol 154 LDL Cholesterol 67 VLDL Cholesterol 18 HDL Cholesterol 69 Code Visit OBSV E&M: 98851 Observation care discharge
--- NOTE | 2018-10-17 14:15 | DS.PCM_ITS ---
<John Barone - Last Filed: 10/17/18 14:05> Discharge Date and Diagnosis Date of Admission: 10/15/18 Date of Discharge: 10/17/18 - Primary Discharge Diagnosis BPPV, CVA ruled out DDD with radiculopathy Tinnitus hx TIA DMt2 diet controlled Hx asthma - Secondary Discharge Diagnosis Chronic Problems Tinnitus (Chronic) TIA (transient ischemic attack) (Chronic) Dependent edema (Chronic) Mild intermittent asthma (Chronic) Diabetes mellitus (Chronic) Diet controlled Hospital Course and Treatment Imaging Results: CT/Brain/Head without Contrast IMPRESSION: Normal unenhanced CT scan of the brain. MRI/Brain without Contrast IMPRESSION: No acute intracranial abnormality. Chronic findings are described above. MRI/Spine Cervical (Routine) IMPRESSION: Multilevel degenerative disc disease is most prominent at C3-C4, C5-C6 and C6-C7. Operations: None Procedures: None Summary of Care Provided: Hospital course: The patient is a 73 year old F with past medical history of chronic peripheral vertigo, history of TIA, history of asthma, history of tinnitus, who presented to the emergency room with worsening of chronic vertigo at home the morning of presentation and difficulty ambulating. She also experienced an episode of numbness in her left arm. In the emergency room CT of the brain was negative. She had positive [place]-Hallpike and short-term relief with Josee maneuver. However she did have the episode of paresthesias in her left arm in the ER. She was admitted for peripheral versus central vertigo. She was given as needed meclizine. PT and OT were ordered. Vestibular therapy did improve her symptoms. An MRI of the brain was obtained and indicated no acute issues. An MRI of the C-spine was obtained which did demonstrate multilevel degenerative disc disease most prominent at C3-C4, C5-C6, and C6-C7. Is felt that her p aresthesias were likely radicular in origin. Patient was discharged home in stable condition. We ordered outpatient vestibular therapy for her. We advised her to follow-up with her ENT Dr. Hodges in 1-2 weeks, and with her PCP in 1-2 weeks. This patient was seen by John Barone PA-C under the supervision of Doctor Mario. [] - Physical Exam General: Alert, Oriented x3, Cooperative HEENT: Atraumatic, PERRLA, EOMI, Normocephalic Neck: Supple, No JVD, Negative Carotid Bruits Lungs: Clear to auscultation, Normal air movement Cardiovascular: Regular rate, No murmurs Abdomen: Bowel Sounds Present, Soft, Non Tender Extremities: No edema, Capillary Refill Less than 3 Seconds Skin: No rashes, No breakdown Musculoskeletal: No Tenderness to Palpation of Joints or Extremities Neurological: Cranial nerves II-XII grossly intact Psych/Mental Status: Normal Affect, Appropriate Vital Signs Temp Pulse Resp BP Pulse Ox 97.8 F 66 18 122/54 H 95 10/17/18 12:20 10/17/18 12:20 10/17/18 12:20 10/17/18 12:20 10/17/18 12:20 Oxygen Delivery Method Room Air Weight: 175 lb 14.862 oz Body Mass Index (BMI) 31.1 Finger Stick Blood Glucose 98 Intake and Output for Last 24 Hours 10/15/18 10/16/18 10/17/18 23:59 23:59 23:59 Intake Total 300 / 300 1000 / 1000 520 / 520 Balance 300 / 300 1000 / 1000 520 / 520 Laboratory Tests Past 24 Hrs 10/17/18 05:18 Triglycerides 88 Cholesterol 154 LDL Cholesterol 67 VLDL Cholesterol 18 HDL Cholesterol 69 Discharge Diet: Low fat/ Low Cholesterol, 1800 Calorie Control Diet, 2000 mg Sodium Diet Discharge Activity: May Not Drive Home Medications: Medications to take at Discharge Albuterol Aerosols [Ventolin Aerosols] 2.5 mg INHALATION DAILY 10/26/15 Calcium Carbonate [Calcium] 600 mg PO BID 10/26/15 Cholecalciferol (VIT D3) [Vitamin D3] 2,000 unit PO DAILY 10/26/15 Lorazepam [Ativan] 0.5 mg PO TID PRN PRN 10/26/15 Montelukast [Singulair] 10 mg PO QHS 10/26/15 [place]-3 Fatty Acids [Fish Oil] 1,200 mg PO DAILY 10/26/15 Vitamin B Complex 1 each PO DAILY 10/26/15 Aspirin E.C. [Ecotrin] 81 mg PO DAILY@0800 #30 tablet 10/27/15 Atorvastatin Calcium [Lipitor] 10 mg PO QHS 06/19/16 Spironolactone 25 mg PO DAILY 10/15/18 Primary Care Physician: Jorge Carbajal DO [Primary Care Provider] - Please follow up with your Primary Care Physician in: 1-2 weeks Please Follow Up With: Yosef Hodges MD When: 1-2 weeks Please Follow Up With: Outpatient therapy When: Tomorrow Disposition: Home Minutes spent on discharge:: 35 Patient Condition:: Stable Medical Necessity - Tobacco Use Smoking Status: Never smoker Tobacco Use: Non-smoker Meaningful Use Info Meaningful Use Diagnoses (Choose all that apply): None applicable <Vega Martin - Last Filed: 10/17/18 15:15> Discharge Date and Diagnosis - Secondary Discharge Diagnosis Chronic Problems Tinnitus (Chronic) TIA (transient ischemic attack) (Chronic) Dependent edema (Chronic) Mild intermittent asthma (Chronic) Diabetes mellitus (Chronic) Diet controlled Hospital Course and Treatment Summary of Care Provided: This patient was seen in conjunction with John PATTERSON. I have independently interviewed and examined the patient and reviewed pertinent history, examination findings, laboratory and plan of management. I have reviewed the note and agree with the documented findings with the few additional points. In brief, patient is admitted for dizziness, vertigo which was much more severe than her baseline chronic dizziness and tinnitus. Patient also had gait incoordination and instability. Furthermore, patient had concern of intermittent tingling sensation in both hand and fingers. MRI brain reported no acute issues. MRI C-spine shows multilevel degenerative disc disease as reported above. Patient was advised to follow with PCP and possible outpatient physical therapy personal therapy. Patient vertigo got much better with Josee maneuver. Diagnosis BPPV I have discussed my assessment with John PATTERSON and orders have been reviewed. [] - Physical Exam General: Alert, Oriented x3, Cooperative HEENT: Atraumatic, PERRLA, EOMI, Normocephalic Neck: Supple, No JVD, Negative Carotid Bruits Lungs: Clear to auscultation, Normal air movement, No rhonchi, No wheeze, No rales Cardiovascular: Regular rate, Regular Rhythm, Normal S2, No murmurs Abdomen: Bowel Sounds Present, Soft, Non Tender, Non-Distended Extremities: No edema, Capillary Refill Less than 3 Seconds Skin: No rashes, No breakdown Musculoskeletal: No Tenderness to Palpation of Joints or Extremities, Arthritic Changes Neurological: Cranial nerves II-XII grossly intact, Deep Tendon Reflexes 2+/4 and Symmetrical, Neuro grossly intact, Motor Exam 5/5 strength throughout, - - Patient vertigo responded well with Josee maneuver. Psych/Mental Status: Normal Affect, Appropriate Vital Signs Temp Pulse Resp BP Pulse Ox 97.8 F 66 18 122/54 H 95 10/17/18 12:20 10/17/18 12:20 10/17/18 12:20 10/17/18 12:20 10/17/18 12:20 Oxygen Delivery Method Room Air Weight: 175 lb 14.862 oz Body Mass Index (BMI) 31.1 Finger Stick Blood Glucose 98 Intake and Output for Last 24 Hours 10/15/18 10/16/18 10/17/18 23:59 23:59 23:59 Intake Total 300 / 300 1000 / 1000 520 / 520 Balance 300 / 300 1000 / 1000 520 / 520 Laboratory Tests Past 24 Hrs 10/17/18 05:18 Triglycerides 88 Cholesterol 154 LDL Cholesterol 67 VLDL Cholesterol 18 HDL Cholesterol 69 Code Visit OBSV E&M: 94767 Observation care discharge
== END 2018-10-17 12:42 | disposition home or self-care (01) ==
LOC: ED 16:00 → MS3 16:16
PROVIDERS: Admitting Provider Family Medicine; Emergency Provider Emergency Medicine; Family Provider Student in an Organized Health Care Education/Training Program; PCP Student in an Organized Health Care Education/Training Program; Referring Provider Family Medicine; Visit Provider Internal Medicine
DX: H81.10 Benign paroxysmal vertigo, unspecified ear (principal); H93.19 Tinnitus, unspecified ear; E11.9 Type 2 diabetes mellitus without complications; Z79.899 Other long term (current) drug therapy; Z79.82 Long term (current) use of aspirin; Z86.73 Personal history of transient ischemic attack (TIA), and cerebral infarction without residual deficits; J45.20 Mild intermittent asthma, uncomplicated; F41.9 Anxiety disorder, unspecified; Z91.81 History of falling; M50.11 Cervical disc disorder with radiculopathy, high cervical region
CPT/HCPCS: 36415; 70450; 70551; 72141; 80048; 80061; 85025; 93005; 94640; 96361; 96372; 96374; 97163; 97165; 97530; 99218; 99285; J7030; J7040; A4216; G0378

== ENCOUNTER → 2018-11-09 06:47 | Outpatient (CLI) | payer MEDICARE, SELFPAY ==
[2018-10-15 17:11] VITALS: BMI 31.1
[2018-11-09 10:27] LABS: EST Glomerular Filtration Rate 87 mL/min (>60); Est Glom Filt Rate - Afr Amer 105 mL/min (>60)
--- NOTE | 2018-11-09 15:24 | BRONCHALL ---
Bronchoprovocation Challenge - Bronchoprovocation Challenge Bronchoprovocation Challenge: BRONCHOPROVOCATION STUDY INTERPRETATION Brief HPI: Patient is a 73 year old female, currently under the care of Juanis Rosas, who presents to [facility] for a bronchoprovocation study secondary to diagnosis of cough. Respiratory therapist reports good effort and reproducible results. Interpretation: Initial spirometry showed no large airways obstructive ventilatory defect. The patient was then given increasingly concentrated doses of methacholine in a stepwise fashion, using a modified ATS protocol. The patient?s maximum reduction in FEV1 was 7 percent predicted. Impression: Negative Bronchoprovocation study. This is NOT consistent with the diagnosis of asthma.
== END ==
PROVIDERS: Urology; Family Provider Student in an Organized Health Care Education/Training Program; PCP Student in an Organized Health Care Education/Training Program
DX: R05 Cough (principal); R31.9 Hematuria, unspecified
CPT/HCPCS: 36415; 82565; 94070; 95070; J3490; J7674

== ENCOUNTER → 2018-11-14 13:42 | Outpatient (CLI) | payer MEDICARE, SELFPAY ==
[2018-10-15 17:11] VITALS: BMI 31.1
--- NOTE | 2018-11-14 13:51 | CT_ITS ---
STUDY: CT ABDOMEN AND PELVIS WITH CONTRAST REASON FOR EXAM: Female, 73 years old. Hematuria. RADIATION DOSAGE (If Supplied By Facility): CTDIvol = ( 16.87 ) mGy, DLP = ( 1227.07 ) mGycm TECHNIQUE: Transaxial images were obtained from the dome of the diaphragm to the symphysis pubis without oral contrast. 100 IV Isovue 300 was administered. Sagittal and coronal images were reconstructed. Individualized dose optimization techniques were used for this CT. COMPARISON: None. FINDINGS: The visualized lung bases are unremarkable. The visualized portions of the heart are within normal limits. Normal liver. There are surgical clips in the gallbladder fossa consistent with a prior cholecystectomy. Normal spleen. Normal pancreas. Normal bilateral adrenal glands. Normal right kidney. Normal left kidney. No definite renal or ureteral stones are seen. There is no hydronephrosis on either side. Evaluation of the GI tract is limited by absence of oral contrast. Cannot exclude stomach wall thickening. No dilated loops of bowel or evidence for obstruction. Cannot exclude segmental thickening of the momin of the small or large bowel. Cannot exclude enteritis or colitis. Moderate diffuse fecal retention. Diverticulosis without definite diverticulitis. Appendix within normal limits. Normal abdominal aorta. Normal inferior vena cava. Normal retroperitoneum. Normal urinary bladder. There is absence of the uterus consistent with a prior hysterectomy. There is a small umbilical hernia containing fat. There are diffuse degenerative changes of the visualized lumbar spine. CT/Abdomen/Pelvis W IV Cont ONLY IMPRESSION: No definite abnormality seen. Electronically Signed: Janak Aguirre MD at 23:36 EDT , Service support ,
== END ==
PROVIDERS: Family Provider Student in an Organized Health Care Education/Training Program; PCP Student in an Organized Health Care Education/Training Program; Referring Provider Urology; Visit Provider Urology
DX: R31.0 Gross hematuria (principal); N39.0 Urinary tract infection, site not specified
CPT/HCPCS: 74177; Q9967

== ENCOUNTER 2018-11-16 14:30 | Outpatient (RCR) | payer MEDICARE, SELFPAY ==
[2018-10-15 17:11] VITALS: BMI 31.1
--- NOTE | 2018-10-21 11:15 | HP.PTEVAL_ITS ---
Patient's Visit Information CASSIA RODRÍGUEZ is a 73 year old F referred to Physical Therapy by LEONARDO Hwang with a diagnosis of vertigo. Date of Evaluation: 10/21/18 Physical Therapist: Yosef Peralta, BOB, OCS, CSCS - Visit Plan Frequency: 1-2x /Week Duration: 2-4 Weeks Plan: 1-2x/week x 2-4 as needed for positional interventions and balance if needed. - Subjective Findings: Crystals are loose. Wednesday morning woke up dizzy. Went to ER and admitted and scanned brain which was OK. Stayed until Wednesday and did MRI of brain and neck whcih were OK. Still dizzy Wednesday and until yesterday. Did posiitional ex at home and felt better until car ride in to clinic today. Has had crystals out of place before and treatment helps. Turned in bed this morning to R and did Ok. Was 50% better this am. No AD needed. Stooping makes her dizzy for a umber of seconds. Retired. Spends day at home working around house but has had to sit in chair lately. has dementia and she needs to cook. Sleep is OK. - Objective Walks slow but well, I transfer without UE. steps with rail only. Romberg eo 30, ec 30. + L hallpike sarika up torsional 20 seconds. treated with L Josee x2 and education. c/s AROM WFL and painfree. - Balance Scores Functional Gait Assessment Score: 21 % Disability: 30.0000 - Goals Goal 1:: Abolish dizzyness adn feel back to normal Goal Time Frame: 2-4 Weeks Goal 2:: patient activity level 100% Goal Time Frame: 2-4 Weeks - Rehabilitation Potential Physical Therapy Diagnosis: BPPV L post canal. Rehabilitation Potential: Good - Anticipated Interventions Patient/Client Instruction: Educate patient on: Plan of Care, Risk Factors For the Purpose of:: To improve ability of physical actions for home/community/work/leisure Therapeutic Exercise to Include: Balance training Comment: positional For the Purpose of:: To increase tolerance to activity/condition/position, To improve ability of physical actions for home/community/work/leisure Thank you for the opportunity to evaluate your patient. For Medicare and Medicare HMO plans, please review the plan of care and approve it. It will need to be FAXED BACK to us at [phone] for Medicare purposes. For Medicare only, by signing this I certify the plan of care. Please let me know if there are questions or concerns regarding this plan of care. Physician Signature: Date:
--- NOTE | 2018-11-16 14:54 | HP.PTDCSUM_ITS ---
HP - PT D/C Summary It has been my pleasure to treat CASSIA RODRÍGUEZ under orders from LEONARDO Hwang, for the diagnosis of vertigo for a total of 4 visit(s). Discharge Date: 11/16/18 Please see the following information for a summary of their discharge status. - Subjective Subjective: Still slightly dizzy quickly if she lies down with head left. It is quick. Can look up and down wiout a problem. activities are normal. Does not avoid L side any longer. Mowed grass today without difficulty. - Overall Improvement % Improvement: 98 - Objective Objective/Function: - B hallpike and - roll test today. Balance much better th an day one and gait is normal. - Goals Goal 1:: Abolish dizzyness adn feel back to normal Goal Progress: Progressing Goal 2:: patient activity level 100% Goal Progress: Goal Met - Plan Plan: D/C - D/C Information Discharge Comments: Doing well with balance and dizzyness. Deep [place] in a couple weeks adn continue BD exercises until no longer helpful. If there are questions or concerns regarding this patient's physical therapy, please feel free to call me at [phone]. Thank you for the referral of this patient. Sincerely, Yosef Peralta, DPT, OCS, CSCS
== END 2018-11-16 19:00 | disposition home or self-care (01) ==
LOC: PT 14:30
PROVIDERS: Family Provider Student in an Organized Health Care Education/Training Program; PCP Student in an Organized Health Care Education/Training Program; Referring Provider Physician Assistant; Visit Provider Physician Assistant
DX: R42 Dizziness and giddiness (principal)
CPT/HCPCS: 97161; 97530

== ENCOUNTER → 2020-05-21 | Outpatient (CLI) | payer MEDICARE, SELFPAY ==
[2020-05-21 10:17] VITALS: BMI 31.1
[2020-05-21 15:15] LABS: Calcium,Total 9.4 mg/dL (8.5-10.1)
[2020-05-21 15:22] LABS: Vitamin D,25 Hydroxy 64.4 ng/mL
== END | disposition home or self-care (01) ==
LOC: MTLAB 11:10
PROVIDERS: PCP Student in an Organized Health Care Education/Training Program; Referring Provider Orthopaedic Surgery; Visit Provider Orthopaedic Surgery
DX: M85.80 Other specified disorders of bone density and structure, unspecified site (principal)
CPT/HCPCS: 36415; 82306; 82310

== ENCOUNTER → 2020-06-06 09:58 | Outpatient (CLI) | payer MEDICARE, SELFPAY ==
[2020-05-21 10:17] VITALS: BMI 31.1
--- NOTE | 2020-06-06 09:58 | BD_ITS ---
STUDY: DUAL ENERGY X-RAY ABSORPTIOMETRY / DXA REASON FOR EXAM: Female, 74 years old. Age of chon 55. Pat is 172.2# and 61.5 and quot; a loss of 2.5 and quot; per pat. Past hx of taking an HRT and presently on a cream. Type II diabetic, controls with her diet. Takes inhalers prn for astma. Currently on a diuretic.Takes 1000 mg of calcium and a multi-vit. Exercises a little. TECHNIQUE: Bone Mineral Density (BMD) measurements of lumbar spine and bilateral hips were obtained. COMPARISON: None. FINDINGS: Lumbar Spine (L1-L4): g/cm2 (1.147) / T-score (-0.1) / Z-score (1.6) Findings are suggestive of normal bone density with a low fracture risk. Left Femur Total: g/cm2 (0.999) / T-score (-0.1) / Z-score (1.6) Left Femoral Neck: g/cm2 (0.872) / T-score (-1.2) / Z-score (0.7) Right Femur Total: g/cm2 (1.002) / T-score (0.0) / Z-score (1.6) Right Femoral Neck: g/cm2 (0.888) / T-score (-1.1) / Z-score (0.8) BD/Dexa Bone Density Study IMPRESSION: The patient is considered osteopenic as outlined below according to World Spencer Organization (WHO) criteria with a low fracture risk. Reference Information: The T-score is the number of standard deviations above or below the standard which is normal for young adults at their peak bone mineral density. The World Health Organization (WHO) interprets the T-scores as follows: Above -1 Normal bone density Between -1 and -2.5 Osteopenia Equal to / or below -2.5 Osteoporosis As a practical clinical guideline, osteopenia may be graded as follows: Mild -1 through -1.5 Moderate -1.6 through -2.0 Severe -2.1 through -2.4 The Z-score is the number of standard deviations above or below age-matched controls. A Z-score of less than -1.5 would be considered abnormal. References: 1. NIH Osteoporosis and Related Bone Diseases www osteo.org 2. International Society for Clinical Densitometry www iscd.org 3. National Osteoporosis Foundation www nof.org Electronically Signed: Jonathan Flanagan, at 12:10 EST , Service support ,
== END ==
PROVIDERS: PCP Student in an Organized Health Care Education/Training Program; Referring Provider Orthopaedic Surgery; Visit Provider Orthopaedic Surgery
DX: M81.0 Age-related osteoporosis without current pathological fracture (principal)
CPT/HCPCS: 77080

== ENCOUNTER 2020-07-13 20:58 | Inpatient (IN) | payer MEDICARE, SELFPAY ==
[2020-05-21 10:17] VITALS: BMI 31.1
[2020-07-13 21:05] VITALS: BP 114/67; PULSE 88; RESP 16; TEMP 37.3; O2SAT 94; BMI 32.1
--- NOTE | 2020-07-13 21:05 | NURSING ---
Patient arrived to unit via stretcher. Transferred to Restroom x1 assist. Gait steady. Dressing removed from surgical site, replaced with DSD. Patient wishes to be FULL code. Medications locked in Nurses Med room. 5 vials of Albuterol Sulfate. 7-Benxonatate 100mg caps 1-bottle of Fluticasone 41- Loratadine tablets
--- NOTE | 2020-07-13 21:08 | HP.PCM_ITS ---
Problem List (1) Debility Status: Acute (2) Lumbar spinal stenosis Status: Chronic (3) Transient ischemic attack Status: Chronic (4) Asthma Status: Chronic (5) Anxiety Status: Chronic (6) Hypertension Status: Chronic (7) Hyperlipidemia Status: Chronic (8) Depression Status: Chronic (9) Vertigo Status: Chronic (10) Diabetes mellitus Status: Chronic Comment: Diet controlled History of Present Illness Date of Admission: 07/13/20 Chief Complaint: Here for rehabilitation, strengthening, prior to discharge home with . 07/09/20 The patient is a 74 year old Female with below past medical history significant for lumbar spinal stenosis admitted to [facility]. Dr. Christianson performed L2-S1 laminectomy, L2-pelvis instrumented fusion, possibly interbody. Acute postoperative anemia required 2 units PRBC transfusion. Occasional cough secondary to asthma treated with Montelukast, Fluticasone nasal spray, Albuterol MDI. Postoperative back pain well managed. 07/13/20 Admit to TCU with debility, here for rehabilitation, strengthening, prior to discharge home with . Past Medical History Past Medical History (Chronic Problems): Chronic Problems Tinnitus (Chronic) Lumbar spinal stenosis (Chronic) Transient ischemic attack (Chronic) Asthma (Chronic) Anxiety (Chronic) Hypertension (Chronic) Hyperlipidemia (Chronic) Depression (Chronic) TIA (transient ischemic attack) (Chronic) Dependent edema (Chronic) Vertigo (Chronic) Mild intermittent asthma (Chronic) Diabetes mellitus (Chronic) Diet controlled Allergies azithromycin [From Zithromax] Allergy (Verified 05/21/20 10:08) Hives Sulfa (Sulfonamide Antibiotics) Allergy (Verified 05/21/20 10:08) Hives Home Medications: Ambulatory Orders Medication Instructions Recorded Calcium Carbonate [Calcium] 600 mg PO BID 10/26/15 Cholecalciferol (VIT D3) [Vitamin 1,000 unit PO DAILY 10/26/15 D3] Lorazepam [Ativan] 0.5 mg PO DAILY 10/26/15 Montelukast [Singulair] 10 mg PO QHS 10/26/15 Vitamin B Complex 1 ea PO DAILY 10/26/15 Atorvastatin Calcium [Lipitor] 10 mg PO QHS 06/19/16 Spironolactone 25 mg PO DAILY 10/15/18 cetirizine 10 mg tablet 10 mg PO DAILY 05/21/20 estradiol 1 g VAGINAL 2XW PRN 05/21/20 Acetaminophen 650 mg PO TID 07/13/20 Albuterol Sulfate 2.5 mg IH Q6H PRN 07/13/20 Ascorbic Acid [Vitamin C] 1,000 mg PO DAILY 07/13/20 Aspirin E.C. [Ecotrin] 81 mg PO DAILY@0800 07/13/20 Docusate Sodium [Colace] 100 mg PO BID 07/13/20 Enoxaparin Sodium [Lovenox] 40 mg SQ DAILY 07/13/20 Fluticasone 0.05% [Flonase Nasal 2 sprays NASAL DAILY 07/13/20 [place]] Gabapentin [Neurontin] 100 mg PO TID 07/13/20 [place]-3 Fatty Acids [Fish Oil] 500 mg PO DAILY 07/13/20 Omeprazole [Prilosec] 20 mg PO DAILY 07/13/20 Ondansetron [Zofran Odt] 4 mg PO Q8H PRN PRN 07/13/20 Oxycodone [Oxyir] 5 - 10 mg PO Q4H PRN PRN 07/13/20 Polyethylene Glycol 3350 [Miralax] 17 gm PO DAILY 07/13/20 Surgical History: arthroscopy, knee - Bilateral., cataract, cholecystectomy, hysterectomy, tonsillectomy, - - Bilateral carpal tunnel release, Lumbar laminectomy/fusion. Psychiatric History: Anxiety, Depression FIRE SUPPORT MAN History: No pertinent FIRE SUPPORT MAN history Lives: Spouse/ Significant Other Smoking Status: Never smoker Tobacco Use: Non-smoker Alcohol: None Drugs: None - *Family History Paternal History Items: Diabetes, Dementia, Heart Disease, Stroke Maternal History Items: - - Migraines cervical cancer Review of Systems Constitutional: Denies: Chills, Fever, Weight Change HEENT: Denies: Head Aches, Sinus Congestion, Sinus Drainage Cardiovascular: Denies: Chest Pain, Palpitations Respiratory: Denies: Cough, Shortness of breath at rest, Sputum production Gastrointestinal: Denies: Abdominal Pain, Nausea, Vomiting Genitourinary: Denies: Dysuria Musculoskeletal: Denies: Joint Pain, Joint Tenderness Skin: Denies: Rash, Wounds Neurological: Reports: - - Neuropathic pain right thigh.. Denies: Focal weakness, Numbness, Tingling Psychiatric: Denies: Anxiety, Depression, Homicidal Ideations, Suicidal Ideations Hematologic/ Lymphatic: Denies: Easy Bruising, Easy Bleeding VTE Information - Inpt Only VTE Present on Admission: No VTE Mechan Device Prophylaxis: Knee High LORI Hose VTE Pharm Prophylaxis ordered?: Yes Patient Problems: Active and Suspected Problems Debility (Acute) - Physical Exam Vitals/I&O's: Weight: 79.52 kg Body Mass Index (BMI) 32.1 Finger Stick Blood Glucose 98 General: Alert, Oriented x3, Cooperative HEENT: Atraumatic, PERRLA, EOMI, Normocephalic Neck: Supple, No JVD, Negative Carotid Bruits Lungs: Clear to auscultation, Normal air movement Cardiovascular: Regular rate, No murmurs Abdomen: Bowel Sounds Present, Soft, Non Tender Extremities: No edema, Capillary Refill Less than 3 Seconds Skin: No rashes, No breakdown Musculoskeletal: No Tenderness to Palpation of Joints or Extremities Neurological: Cranial nerves II-XII grossly intact Psych/Mental Status: Normal Affect, Appropriate Assessment/Plan All Active Problems Debility (Acute) 74 year old female with below past medical history hospitalized for lumbar laminectomy/fusion 07/09/20, postoperative course complicated by anemia requiring transfusion, cough, admitted to TCU with debility, here for rehabilitation, strengthening, prior to discharge home with . * Debility - PT/OT. * Pain - Tylenol 1000MG TID, Oxycodone 10MG Q4H PRN pain (4-10). * Bowel - Miralax 17GM daily, Senna/colace 2 tablets BID, MOM 30ML daily PRN, Dulcolax 10MG [place] daily PRN. * Adult immunization - Administer Prevnar 13, Pneumovax 23, Fluzone as appropriate. * DVT prophylaxis - Lovenox 40MG sc daily. * Asthma - Singulair 10MG QHS, Albuterol 2.5MG nebulized Q6H PRN. * Vitamin C deficiency - Vitamin C 1000MG daily. * TIA - Aspirin 81MG daily. * Hyperlipidemia - Atorvastatin 10MG QHS. * Calcium deficiency - Calcium 500MG BID. * Vitamin D deficiency - D3 2000IU daily. * Allergic Rhinitis - Loratadine 10MG daily, Flonase 2 spray nasal daily. * Post Herpetic Neuritis - Gabapentin 300MG TID. * Anxiety - Lorazepam 0.5MG daily, stable chronic bed bug exterminator use, GDR not recommended. * Nausea - Zofran ODT 4MG Q8H PRN. * GERD - Pantoprazole 20MG daily. * Edema - Aldactone 25MG daily. * Vitamin B deficiency - Vitamin B complex daily.
[2020-07-13] MEDS: Gabapentin 100 MG Capsule PO (22:09)
[2020-07-13] MEDS: Atorvastatin Calcium 10 MG Tablet PO (22:09)
[2020-07-13] MEDS: Montelukast 10 MG Tablet PO (22:09)
[2020-07-14 05:00] VITALS: BP 119/60; PULSE 91; RESP 16; TEMP 37.6; O2SAT 94
[2020-07-14] MEDS: Loratadine 10 MG Tablet PO (05:27)
[2020-07-14] MEDS: Calcium (Elemental) 500 MG Tablet PO ×2 (05:28→17:03)
[2020-07-14] MEDS: Acetaminophen 500 MG Tablet 1000 MG PO ×3 (05:28→20:33)
[2020-07-14] MEDS: Gabapentin 100 MG Capsule PO ×3 (05:28→20:32)
[2020-07-14] MEDS: Pantoprazole Sodium 20 MG Tablet PO (05:28)
[2020-07-14] MEDS: Spironolactone 25 MG Tablet PO (05:28)
[2020-07-14] MEDS: Vitamin B Comp W-C Capsule 1 CAP PO (05:28)
[2020-07-14] MEDS: Fluticasone 0.05% 1 SPRAY NASAL.SRY 2 SPRAY NASAL (05:28)
[2020-07-14] MEDS: Ascorbic Acid 500 MG Tablet 1000 MG PO (05:28)
[2020-07-14] MEDS: Enoxaparin 40 MG/0.4 ML Syringe SC (05:29)
[2020-07-14] MEDS: Polyethylene Glycol 3350 17 GM PACKET PO (05:29)
[2020-07-14 05:35] LABS: Absolute Lymphocyte Count 0.67 X10^3/uL (0.83-4.51); Absolute Neutrophil Count 4.1 X10^3/uL (2.0-7.7); Basophil# 0.04 X10^3/uL; Basophil% 0.7 % (0-1); Eosinophils% 5.2 % (0-5); Hematocrit 28.1 % (37-47); Hemoglobin 9.1 g/dL (12.0-15.0); Lymphocyte # 0.67 X10^3/ul (4.0); Lymphocyte % 11.5 % (19-41); Mean Corp Hgb Conc 32.4 g/dL (32-36); Mean Corpuscular Hgb 29.7 pg (27.0-32.0); Mean Corpuscular Volume 91.8 fL (81-99); Mean Platelet Vol. 9.4 fl (6.2-12.0); NRBC Flagged by Analyzer 0 % (0-5); Neutrophil # 4.08 X10^3/uL (2.7-7.7); Neutrophil % 70.1 % (47-70); Platelet Count 289 K/mm3 (150-450); RBC Distribution Width CV 13.8 % (11.6-14.6); RBC Distribution Width SD 46.5 fl (35.1-43.9); Red Blood Count 3.06 M/mm3 (4.2-5.4); White Blood Count 5.8 K/mm3 (4.4-11.0)
[2020-07-14] MEDS: LORazepam 0.5 MG Tablet PO (05:35)
[2020-07-14 05:48] LABS: Anion Gap 3 (5-15); BUN 10 mg/dL (7-18); BUN/Creat Ratio 15.8 RATIO (10-20); Calcium,Total 8.6 mg/dL (8.5-10.1); Chloride 102 mmol/L (98-107); Creatinine, Serum 0.63 mg/dL (0.55-1.02); EST Glomerular Filtration Rate 98 mL/min (>60); Est Glom Filt Rate - Afr Amer 119 mL/min (>60); Estimated Creatinine Clearance 39.63 ml/min; Glucose 103 mg/dL (74-106); Potassium 4.1 mmol/L (3.5-5.1); Sodium Level 136 mmol/L (136-145)
[2020-07-14] MEDS: Aspirin E.C. 81 MG Tablet PO (08:11)
[2020-07-14 10:00] VITALS: PULSE 77; O2SAT 97
[2020-07-14] MEDS: Tuberculin,Purif.prot.deriv. 50 TU/ML Vial 5 ML ID (10:57)
[2020-07-14 15:21] VITALS: BP 121/62; PULSE 86; RESP 14; TEMP 36.9; O2SAT 95
[2020-07-14] MEDS: Atorvastatin Calcium 10 MG Tablet PO (20:31)
[2020-07-14] MEDS: Montelukast 10 MG Tablet PO (20:32)
[2020-07-15 05:00] VITALS: BP 106/55; PULSE 78; RESP 18; TEMP 36.8; O2SAT 96
--- NOTE | 2020-07-15 05:15 | NURSING ---
Addendum entered by Juanis Wells 07/15/20 05:58: Patient requesting for daughter to be able to come in and feed her. Patient states she is unable to feed herself. As Emelina OZUNA was giving patient medications, patient took the spoon right out of SULMA's hand and put it into her mouth. Explained to patient we are to have no visitors d/t COVID. That we only have certain situations where we could have a visitor. Patient upset, but understood. Original Note: Patient c/o right great toe pain and states I had gout 20 some years ago, I think I have it again. Also c/o nausea, lightheaded and dizziness this morning. Patient also states I told you I need to see the doctor that my shingles is back Explained to patient that Dr. Crystal would address her concerns today.RN aware. Note written for Dr. Crystal.
[2020-07-15] MEDS: Vitamin B Comp W-C Capsule 1 CAP PO (05:41)
[2020-07-15] MEDS: Spironolactone 25 MG Tablet PO (05:41)
[2020-07-15] MEDS: LORazepam 0.5 MG Tablet PO (05:46)
[2020-07-15] MEDS: Ondansetron ODT 4 MG Tablet PO (05:47)
[2020-07-15] MEDS: Loratadine 10 MG Tablet PO (07:27)
[2020-07-15] MEDS: Fluticasone 0.05% 1 SPRAY NASAL.SRY 2 SPRAY NASAL (07:27)
[2020-07-15] MEDS: Polyethylene Glycol 3350 17 GM PACKET PO (07:27)
[2020-07-15] MEDS: Enoxaparin 40 MG/0.4 ML Syringe SC (07:28)
[2020-07-15] MEDS: Gabapentin 100 MG Capsule PO (07:29)
[2020-07-15] MEDS: Calcium (Elemental) 500 MG Tablet PO ×2 (07:29→17:35)
[2020-07-15] MEDS: Senna/Docusate Sodium 1 Tablet 2 TABLET PO ×2 (07:29→17:36)
[2020-07-15] MEDS: Pantoprazole Sodium 20 MG Tablet PO (07:29)
[2020-07-15] MEDS: Acetaminophen 500 MG Tablet 1000 MG PO ×3 (07:29→21:45)
[2020-07-15] MEDS: Ascorbic Acid 500 MG Tablet 1000 MG PO (07:30)
[2020-07-15] MEDS: Aspirin E.C. 81 MG Tablet PO (07:38)
[2020-07-15] MEDS: Iron Polysaccharide Complex 150 MG CAPSULE PO (09:33)
--- NOTE | 2020-07-15 12:20 | CASEMGMT ---
Social Work Discussed code status with pt. Pt confirmed full code. MOLST form reviewed with pt, communication to , placed in chart. Masha Rivera, CHEMICAL PATHOLOGIST BOARDING MACHINE OPERATOR
[2020-07-15 13:50] VITALS: PULSE 75; RESP 18; O2SAT 95
[2020-07-15] MEDS: Gabapentin 300 MG Capsule PO ×2 (13:50→21:46)
[2020-07-15 14:31] VITALS: BP 131/62; PULSE 95; RESP 18; TEMP 36.3; O2SAT 75
[2020-07-15] MEDS: Atorvastatin Calcium 10 MG Tablet PO (21:45)
[2020-07-15] MEDS: Montelukast 10 MG Tablet PO (21:46)
[2020-07-16 05:00] VITALS: BP 125/61; PULSE 73; RESP 18; TEMP 36.6; O2SAT 92
[2020-07-16] MEDS: Ascorbic Acid 500 MG Tablet 1000 MG PO (05:05)
[2020-07-16] MEDS: Polyethylene Glycol 3350 17 GM PACKET PO (05:06)
[2020-07-16] MEDS: Calcium (Elemental) 500 MG Tablet PO ×2 (05:07→17:36)
[2020-07-16] MEDS: Gabapentin 300 MG Capsule PO ×3 (05:07→21:57)
[2020-07-16] MEDS: Pantoprazole Sodium 20 MG Tablet PO (05:07)
[2020-07-16] MEDS: Loratadine 10 MG Tablet PO (05:08)
[2020-07-16] MEDS: Senna/Docusate Sodium 1 Tablet 2 TABLET PO ×2 (05:08→17:35)
[2020-07-16] MEDS: Vitamin B Comp W-C Capsule 1 CAP PO (05:08)
[2020-07-16] MEDS: Acetaminophen 500 MG Tablet 1000 MG PO ×3 (05:08→21:58)
[2020-07-16] MEDS: Enoxaparin 40 MG/0.4 ML Syringe SC (05:09)
[2020-07-16] MEDS: Spironolactone 25 MG Tablet PO (05:09)
[2020-07-16] MEDS: LORazepam 0.5 MG Tablet PO (05:16)
[2020-07-16] MEDS: Fluticasone 0.05% 1 SPRAY NASAL.SRY 2 SPRAY NASAL (08:41)
[2020-07-16] MEDS: Aspirin E.C. 81 MG Tablet PO (08:42)
[2020-07-16] MEDS: Iron Polysaccharide Complex 150 MG CAPSULE PO (08:42)
[2020-07-16] MEDS: oxyCODONE 5 MG Tablet 10 MG PO (08:46)
[2020-07-16 09:00] VITALS: PULSE 75; RESP 16
[2020-07-16] MEDS: Albuterol 2.5 MG/3 ML VIAL.NEB. INHALATION (09:00)
[2020-07-16 10:00] VITALS: PULSE 73; RESP 18; O2SAT 92
--- NOTE | 2020-07-16 12:40 | PHA.CONS_ITS ---
<Dax Bautista Angela - Last Filed: 07/16/20 12:40> Progress Note - Pharmacy Subjective: TCU Admission Objective: Allergies azithromycin [From Zithromax] Allergy (Verified 05/21/20 10:08) Hives Sulfa (Sulfonamide Antibiotics) Allergy (Verified 05/21/20 10:08) Hives Current Medications Generic Name Dose Route Start Last Admin Trade Name Freq PRN Reason Stop Dose Admin Acetaminophen 1,000 mg 07/13/20 22:00 07/16/20 05:08 Acetaminophen 500 Mg Tablet PO 1,000 mg TID GEMMA Administration Albuterol Sulfate 2.5 mg 07/13/20 21:27 07/16/20 09:00 Albuterol 2.5 Mg/3 Ml Vial.Neb. INHALATION 2.5 mg Q6H PRN PRN Administration SOB/Wheezing Ascorbic Acid 1,000 mg 07/14/20 06:00 07/16/20 05:05 Ascorbic Acid 500 Mg Tablet PO 1,000 mg DAILY GEMMA Administration Aspirin 81 mg 07/14/20 08:00 07/16/20 08:42 Aspirin E.C. 81 Mg Tablet PO 81 mg DAILY@0800 GEMMA Administration Atorvastatin Calcium 10 mg 07/13/20 22:00 07/15/20 21:45 Atorvastatin Calcium 10 Mg Tablet PO 10 mg QHS GEMMA Administration Bisacodyl 10 mg 07/13/20 21:57 Bisacodyl 10 Mg Suppository RECTAL DAILY PRN Constipation Calcium Carbonate 500 mg 07/14/20 06:00 07/16/20 05:07 Calcium (Elemental) 500 Mg Tablet PO 500 mg BID GEMMA Administration Cholecalciferol 2,000 unit 07/14/20 06:00 07/16/20 05:08 Cholecalciferol (Vit D3) 1,000 Unit (25mcg) PO 2,000 unit DAILY GEMMA Administration Enoxaparin Sodium 40 mg 07/14/20 06:00 07/16/20 05:09 Enoxaparin 40 Mg/0.4 Ml Syringe SC 40 mg DAILY GEMMA Administration Fluticasone Propionate 2 spray 07/14/20 06:00 07/16/20 08:41 Fluticasone 0.05% 1 [place] Nasal.Sry NASAL 2 spray DAILY GEMMA Administration Gabapentin 300 mg 07/15/20 14:00 07/16/20 05:07 Gabapentin 300 Mg Capsule PO 300 mg TID GEMMA Administration Loratadine 10 mg 07/14/20 06:00 07/16/20 05:08 Loratadine 10 Mg Tablet PO 10 mg DAILY GEMMA Administration Lorazepam 0.5 mg 07/14/20 06:00 07/16/20 05:16 Lorazepam 0.5 Mg Tablet PO 0.5 mg DAILY GEMMA Administration Magnesium Hydroxide 30 ml 07/13/20 21:57 Magnesium Hydroxide 30 Ml Udc PO DAILY PRN Constipation Montelukast Sodium 10 mg 07/13/20 22:00 07/15/20 21:46 Montelukast 10 Mg Tablet PO 10 mg QHS GEMMA Administration Multivitamins 1 capsule 07/14/20 06:00 07/16/20 05:08 Vitamin B Comp W-C Capsule PO 1 capsule DAILY GEMMA Administration Ondansetron HCl 4 mg 07/13/20 21:27 07/15/20 05:47 Ondansetron Odt 4 Mg Tablet PO 4 mg Q8H PRN PRN Administration NAUSEA Oxycodone HCl 10 mg 07/13/20 21:58 07/16/20 08:46 Oxycodone 5 Mg Tablet PO 10 mg Q4H PRN PRN Administration Pain Score 4-10 Pantoprazole Sodium 20 mg 07/14/20 06:00 07/16/20 05:07 Pantoprazole Sodium 20 Mg Tablet PO 20 mg DAILY GEMMA Administration Polyethylene Glycol 17 gm 07/14/20 06:00 07/16/20 05:06 Polyethylene Glycol 3350 17 Gm Packet PO 17 gm DAILY GEMMA Administration Polysaccharide Iron Complex 150 mg 07/15/20 08:00 07/16/20 08:42 Iron Polysaccharide Complex 150 Mg Capsule PO 150 mg DAILYCM GEMMA Administration Senna/Docusate Sodium 2 tablet 07/14/20 06:00 07/16/20 05:08 Senna/Docusate Sodium 1 Tablet PO 2 tablet BID GEMMA Administration Spironolactone 25 mg 07/14/20 06:00 07/16/20 05:09 Spironolactone 25 Mg Tablet PO 25 mg DAILY GEMMA Administration Tuberculin PPD 5 tu 07/21/20 10:00 Tuberculin,Purif.Prot.Deriv. 50 Tu/Ml Vial ID 07/21/20 10:01 X1 ONE Problem List Debility (Acute) Lumbar spinal stenosis (Chronic) Transient ischemic attack (Chronic) Asthma (Chronic) Anxiety (Chronic) Hypertension (Chronic) Hyperlipidemia (Chronic) Depression (Chronic) Vertigo (Chronic) Diabetes mellitus (Chronic) Vital Signs Temp Pulse Resp BP Pulse Ox 97.8 F 75 16 125/61 H 92 07/16/20 05:00 07/16/20 09:00 07/16/20 09:00 07/16/20 05:00 07/16/20 05:00 Oxygen Delivery Method Room Air Weight: 79.152 kg Body Mass Index (BMI) 32.1 Finger Stick Blood Glucose 98 Sodium 136 mmol/L (136-145) 07/14/20 05:20 Potassium 4.1 mmol/L (3.5-5.1) 07/14/20 05:20 Chloride 102 mmol/L (98-107) 07/14/20 05:20 Carbon Dioxide 31.0 mmol/L (21.0-32.0) 07/14/20 05:20 Anion Gap 3 (5-15) L 07/14/20 05:20 BUN 10 mg/dL (7-18) 07/14/20 05:20 Creatinine 0.63 mg/dL (0.55-1.02) 07/14/20 05:20 Est GFR (MDRD) Af Amer 119 mL/min (>60) 07/14/20 05:20 Est GFR (MDRD) Non-Af 98 mL/min (>60) 07/14/20 05:20 BUN/Creatinine Ratio 15.8 RATIO (10-20) 07/14/20 05:20 Glucose 103 mg/dL (74-106) 07/14/20 05:20 Assessment/Plan: 1) Pain APAP, gabapentin, oxycodone for pain 4-10. Continue to monitor daily pain scores, prn medication use. 2) Pulm Albuterol prn, loratadine, fluticasone, montelukast. Continue to monitor prn medication use, for shortness of breath. 3) Edema Spironolactone. Continue to monitor renal function, electrolytes, BP/HR. 4) TIA/Lipids ASA, atorvastatin. Continue to monitor neuro symptoms, lipids, for bleeding/clot. 5) GI Pantoprazole, ondansetron prn. Continue to monitor prn medication use, for n/v, s/s GI distress. 6) DVT PPx Enoxaparin. Continue to monitor s/s bleeding/clot. 7) Nutrition Ca, D, C, Fe, B/C. Continue to monitor clinically. Psychotropic Medications: 8) Anxiety Lorazepam. Continue to monitor s/s anxiety. Unnecessary Medications: None Bowel Regimen: 9) Senna/s, PEG, prn bisacodyl, prn MgOH. Continue to monitor prn medication use, constipation/diarrhea. Date of Note:: 07/16/20 - Provider Comments Provider responsibility: Provider responsible to enter orders to implement recommendations <Ronny Crystal Chi - Last Filed: 07/16/20 14:21> Progress Note - Pharmacy Subjective: [] Objective: Allergies azithromycin [From Zithromax] Allergy (Verified 05/21/20 10:08) Hives Sulfa (Sulfonamide Antibiotics) Allergy (Verified 05/21/20 10:08) Hives Current Medications Generic Name Dose Route Start Last Admin Trade Name Freq PRN Reason Stop Dose Admin Acetaminophen 1,000 mg 07/13/20 22:00 07/16/20 13:09 Acetaminophen 500 Mg Tablet PO 1,000 mg TID GEMMA Administration Albuterol Sulfate 2.5 mg 07/13/20 21:27 07/16/20 09:00 Albuterol 2.5 Mg/3 Ml Vial.Neb. INHALATION 2.5 mg Q6H PRN PRN Administration SOB/Wheezing Ascorbic Acid 1,000 mg 07/14/20 06:00 07/16/20 05:05 Ascorbic Acid 500 Mg Tablet PO 1,000 mg DAILY GEMMA Administration Aspirin 81 mg 07/14/20 08:00 07/16/20 08:42 Aspirin E.C. 81 Mg Tablet PO 81 mg DAILY@0800 GEMMA Administration Atorvastatin Calcium 10 mg 07/13/20 22:00 07/15/20 21:45 Atorvastatin Calcium 10 Mg Tablet PO 10 mg QHS GEMMA Administration Bisacodyl 10 mg 07/13/20 21:57 Bisacodyl 10 Mg Suppository RECTAL DAILY PRN Constipation Calcium Carbonate 500 mg 07/14/20 06:00 07/16/20 05:07 Calcium (Elemental) 500 Mg Tablet PO 500 mg BID GEMMA Administration Cholecalciferol 2,000 unit 07/14/20 06:00 07/16/20 05:08 Cholecalciferol (Vit D3) 1,000 Unit (25mcg) PO 2,000 unit DAILY GEMMA Administration Enoxaparin Sodium 40 mg 07/14/20 06:00 07/16/20 05:09 Enoxaparin 40 Mg/0.4 Ml Syringe SC 40 mg DAILY GEMMA Administration Fluticasone Propionate 2 spray 07/14/20 06:00 07/16/20 08:41 Fluticasone 0.05% 1 [place] Nasal.Sry NASAL 2 spray DAILY GEMMA Administration Gabapentin 300 mg 07/15/20 14:00 07/16/20 13:09 Gabapentin 300 Mg Capsule PO 300 mg TID GEMMA Administration Loratadine 10 mg 07/14/20 06:00 07/16/20 05:08 Loratadine 10 Mg Tablet PO 10 mg DAILY GEMMA Administration Lorazepam 0.5 mg 07/14/20 06:00 07/16/20 05:16 Lorazepam 0.5 Mg Tablet PO 0.5 mg DAILY GEMMA Administration Magnesium Hydroxide 30 ml 07/13/20 21:57 Magnesium Hydroxide 30 Ml Udc PO DAILY PRN Constipation Montelukast Sodium 10 mg 07/13/20 22:00 07/15/20 21:46 Montelukast 10 Mg Tablet PO 10 mg QHS [facility] Administration Multivitamins 1 capsule 07/14/20 06:00 07/16/20 05:08 Vitamin B Comp W-C Capsule PO 1 capsule DAILY [facility] Administration Ondansetron HCl 4 mg 07/13/20 21:27 07/15/20 05:47 Ondansetron Odt 4 Mg Tablet PO 4 mg Q8H PRN PRN Administration NAUSEA Oxycodone HCl 10 mg 07/13/20 21:58 07/16/20 08:46 Oxycodone 5 Mg Tablet PO 10 mg Q4H PRN PRN Administration Pain Score 4-10 Pantoprazole Sodium 20 mg 07/14/20 06:00 07/16/20 05:07 Pantoprazole Sodium 20 Mg Tablet PO 20 mg DAILY GEMMA Administration Polyethylene Glycol 17 gm 07/14/20 06:00 07/16/20 05:06 Polyethylene Glycol 3350 17 Gm Packet PO 17 gm DAILY GEMMA Administration Polysaccharide Iron Complex 150 mg 07/15/20 08:00 07/16/20 08:42 Iron Polysaccharide Complex 150 Mg Capsule PO 150 mg DAILYCM GEMMA Administration Senna/Docusate Sodium 2 tablet 07/14/20 06:00 07/16/20 05:08 Senna/Docusate Sodium 1 Tablet PO 2 tablet BID GEMMA Administration Spironolactone 25 mg 07/14/20 06:00 07/16/20 05:09 Spironolactone 25 Mg Tablet PO 25 mg DAILY GEMMA Administration Tuberculin PPD 5 tu 07/21/20 10:00 Tuberculin,Purif.Prot.Deriv. 50 Tu/Ml Vial ID 07/21/20 10:01 X1 ONE Problem List Debility (Acute) Lumbar spinal stenosis (Chronic) Transient ischemic attack (Chronic) Asthma (Chronic) Anxiety (Chronic) Hypertension (Chronic) Hyperlipidemia (Chronic) Depression (Chronic) Vertigo (Chronic) Diabetes mellitus (Chronic) Vital Signs Temp Pulse Resp BP Pulse Ox 97.8 F 75 16 125/61 H 92 07/16/20 05:00 07/16/20 09:00 07/16/20 09:00 07/16/20 05:00 07/16/20 05:00 Oxygen Delivery Method Room Air Weight: 79.152 kg Body Mass Index (BMI) 32.1 Finger Stick Blood Glucose 98 Sodium 136 mmol/L (136-145) 07/14/20 05:20 Potassium 4.1 mmol/L (3.5-5.1) 07/14/20 05:20 Chloride 102 mmol/L (98-107) 07/14/20 05:20 Carbon Dioxide 31.0 mmol/L (21.0-32.0) 07/14/20 05:20 Anion Gap 3 (5-15) L 07/14/20 05:20 BUN 10 mg/dL (7-18) 07/14/20 05:20 Creatinine 0.63 mg/dL (0.55-1.02) 07/14/20 05:20 Est GFR (MDRD) Af Amer 119 mL/min (>60) 07/14/20 05:20 Est GFR (MDRD) Non-Af 98 mL/min (>60) 07/14/20 05:20 BUN/Creatinine Ratio 15.8 RATIO (10-20) 07/14/20 05:20 Glucose 103 mg/dL (74-106) 07/14/20 05:20 Assessment/Plan: Psychotropic Medications: Unnecessary Medications: Bowel Regimen: - Provider Comments Provider responsibility: Provider responsible to enter orders to implement recommendations Provider Comments to Recommendations by Pharmacy: Agree
[2020-07-16 14:49] VITALS: BP 105/40; PULSE 85; RESP 20; TEMP 36.3; O2SAT 96
[2020-07-16] MEDS: Montelukast 10 MG Tablet PO (21:57)
[2020-07-16] MEDS: Atorvastatin Calcium 10 MG Tablet PO (21:57)
[2020-07-17] MEDS: LORazepam 0.5 MG Tablet PO (06:34)
[2020-07-17] MEDS: Spironolactone 25 MG Tablet PO (06:35)
[2020-07-17] MEDS: Fluticasone 0.05% 1 SPRAY NASAL.SRY 2 SPRAY NASAL (06:35)
[2020-07-17] MEDS: Vitamin B Comp W-C Capsule 1 CAP PO (06:35)
[2020-07-17] MEDS: Loratadine 10 MG Tablet PO (06:35)
[2020-07-17] MEDS: Enoxaparin 40 MG/0.4 ML Syringe SC (06:36)
[2020-07-17] MEDS: Gabapentin 300 MG Capsule PO ×3 (06:37→21:45)
[2020-07-17] MEDS: Pantoprazole Sodium 20 MG Tablet PO (06:38)
[2020-07-17] MEDS: Calcium (Elemental) 500 MG Tablet PO ×2 (06:39→17:09)
[2020-07-17] MEDS: Acetaminophen 500 MG Tablet 1000 MG PO ×3 (06:39→21:45)
[2020-07-17] MEDS: Ascorbic Acid 500 MG Tablet 1000 MG PO (06:40)
[2020-07-17 06:53] VITALS: BP 103/52; PULSE 75; RESP 18; TEMP 36.4; O2SAT 96
[2020-07-17] MEDS: oxyCODONE 5 MG Tablet 10 MG PO ×2 (08:05→17:10)
[2020-07-17] MEDS: Aspirin E.C. 81 MG Tablet PO (08:06)
[2020-07-17] MEDS: Iron Polysaccharide Complex 150 MG CAPSULE PO (08:06)
--- NOTE | 2020-07-17 09:45 | CASEMGMT ---
Social Work IDT met with patient and dtr via conference call for care plan meeting., Discussed patient's progress in therapy. Pt is [place] for transfers, min for bed mobility, ambulating 80 ft with FWW at [facility]. Pt is set up for grooming, bathing, UE ADLS, mod for toilet tasks, min for LE ADLS. Pt is on a regular diet, intake is good, receiving ensure, weight stable. Pt is out of isolation 1/. Explained [employer] insurance with [employer] 07/17 and continued stay is not guaranteed. Pt lives at home with who has Dementia. Dtr and other children/ in-laws are currently assisting at home. Inquired about continuing that at [place] due to pt's precautions. Dtr agreed and that will be happening so pt does not have to assist . Pt does have 3 steps to enter. Will continue to follow. Masha Rivera, MEDIA ANALYTICS MANAGER HARP REGULATOR
[2020-07-17 10:00] VITALS: PULSE 75; RESP 16; O2SAT 94
--- NOTE | 2020-07-17 11:33 | NURSING ---
Talked with daughter regarding back brace, daughter said pt does not have back brace it is something else to help her back with therapy but insurance will not cover it until after discharge.
[2020-07-17 14:24] VITALS: BP 123/54; PULSE 74; RESP 16; TEMP 36.2; O2SAT 95
[2020-07-17] MEDS: Senna/Docusate Sodium 1 Tablet 2 TABLET PO (17:09)
[2020-07-17] MEDS: Atorvastatin Calcium 10 MG Tablet PO (21:44)
[2020-07-17] MEDS: Montelukast 10 MG Tablet PO (21:45)
[2020-07-18] MEDS: Spironolactone 25 MG Tablet PO (04:48)
[2020-07-18] MEDS: Vitamin B Comp W-C Capsule 1 CAP PO (04:49)
[2020-07-18] MEDS: Loratadine 10 MG Tablet PO (04:50)
[2020-07-18] MEDS: Enoxaparin 40 MG/0.4 ML Syringe SC (04:50)
[2020-07-18] MEDS: Gabapentin 300 MG Capsule PO ×3 (04:51→20:23)
[2020-07-18] MEDS: Polyethylene Glycol 3350 17 GM PACKET PO (04:51)
[2020-07-18] MEDS: Senna/Docusate Sodium 1 Tablet 2 TABLET PO (04:52)
[2020-07-18] MEDS: Acetaminophen 500 MG Tablet 1000 MG PO ×3 (04:52→20:23)
[2020-07-18] MEDS: Pantoprazole Sodium 20 MG Tablet PO (04:52)
[2020-07-18] MEDS: Ascorbic Acid 500 MG Tablet 1000 MG PO (04:53)
[2020-07-18] MEDS: Calcium (Elemental) 500 MG Tablet PO ×2 (04:54→17:18)
[2020-07-18] MEDS: Fluticasone 0.05% 1 SPRAY NASAL.SRY 2 SPRAY NASAL (04:55)
[2020-07-18] MEDS: LORazepam 0.5 MG Tablet PO (04:58)
[2020-07-18 05:00] VITALS: BP 140/62; PULSE 82; RESP 18; TEMP 37.1; O2SAT 96
[2020-07-18 06:54] VITALS: PULSE 75; RESP 18
[2020-07-18] MEDS: Albuterol 2.5 MG/3 ML VIAL.NEB. INHALATION (06:54)
[2020-07-18] MEDS: Aspirin E.C. 81 MG Tablet PO (08:14)
[2020-07-18] MEDS: Iron Polysaccharide Complex 150 MG CAPSULE PO (08:14)
[2020-07-18] MEDS: oxyCODONE 5 MG Tablet 10 MG PO (08:17)
[2020-07-18 09:45] VITALS: PULSE 76; RESP 18; O2SAT 93
--- NOTE | 2020-07-18 09:51 | CASEMGMT ---
BIMS and PHQ9 interviews completed on this date for MDS assessment. ELISA Bee
--- NOTE | 2020-07-18 11:39 | MDS.RN ---
Pain interview for AMOR 07/22/20 completed.
[2020-07-18 15:18] VITALS: BP 120/52; PULSE 80; RESP 16; TEMP 36.6; O2SAT 95
--- NOTE | 2020-07-18 19:36 | NURSING ---
PT STATED SHE UPDATES FAMILY
[2020-07-18] MEDS: Montelukast 10 MG Tablet PO (20:23)
[2020-07-18] MEDS: Atorvastatin Calcium 10 MG Tablet PO (20:23)
[2020-07-19 05:00] VITALS: BP 147/61; PULSE 76; RESP 16; TEMP 36.8; O2SAT 93
[2020-07-19] MEDS: Spironolactone 25 MG Tablet PO (05:15)
[2020-07-19] MEDS: Pantoprazole Sodium 20 MG Tablet PO (05:15)
[2020-07-19] MEDS: Gabapentin 300 MG Capsule PO ×3 (05:16→20:08)
[2020-07-19] MEDS: Loratadine 10 MG Tablet PO (05:16)
[2020-07-19] MEDS: Senna/Docusate Sodium 1 Tablet 2 TABLET PO ×2 (05:16→17:30)
[2020-07-19] MEDS: Vitamin B Comp W-C Capsule 1 CAP PO (05:16)
[2020-07-19] MEDS: Calcium (Elemental) 500 MG Tablet PO ×2 (05:16→17:30)
[2020-07-19] MEDS: Acetaminophen 500 MG Tablet 1000 MG PO ×3 (05:16→20:08)
[2020-07-19] MEDS: LORazepam 0.5 MG Tablet PO (05:17)
[2020-07-19] MEDS: Polyethylene Glycol 3350 17 GM PACKET PO (05:17)
[2020-07-19] MEDS: Ascorbic Acid 500 MG Tablet 1000 MG PO (05:17)
[2020-07-19] MEDS: Enoxaparin 40 MG/0.4 ML Syringe SC (05:20)
[2020-07-19] MEDS: Fluticasone 0.05% 1 SPRAY NASAL.SRY 2 SPRAY NASAL (05:21)
[2020-07-19] MEDS: Albuterol 2.5 MG/3 ML VIAL.NEB. INHALATION (07:25)
[2020-07-19] MEDS: Aspirin E.C. 81 MG Tablet PO (08:27)
[2020-07-19] MEDS: Iron Polysaccharide Complex 150 MG CAPSULE PO (08:28)
[2020-07-19 14:59] VITALS: BP 133/59; PULSE 79; RESP 16; TEMP 36.7; O2SAT 93
[2020-07-19] MEDS: Montelukast 10 MG Tablet PO (20:08)
[2020-07-19] MEDS: Atorvastatin Calcium 10 MG Tablet PO (20:08)
[2020-07-20 05:00] VITALS: BP 129/66; PULSE 79; RESP 18; TEMP 36.3; O2SAT 92
[2020-07-20] MEDS: Polyethylene Glycol 3350 17 GM PACKET PO (05:37)
[2020-07-20] MEDS: Enoxaparin 40 MG/0.4 ML Syringe SC (05:37)
[2020-07-20] MEDS: Ascorbic Acid 500 MG Tablet 1000 MG PO (05:37)
[2020-07-20] MEDS: Spironolactone 25 MG Tablet PO (05:38)
[2020-07-20] MEDS: Vitamin B Comp W-C Capsule 1 CAP PO (05:38)
[2020-07-20] MEDS: Acetaminophen 500 MG Tablet 1000 MG PO ×3 (05:38→21:16)
[2020-07-20] MEDS: Senna/Docusate Sodium 1 Tablet 2 TABLET PO (05:38)
[2020-07-20] MEDS: Pantoprazole Sodium 20 MG Tablet PO (05:38)
[2020-07-20] MEDS: Calcium (Elemental) 500 MG Tablet PO ×2 (05:38→18:38)
[2020-07-20] MEDS: Loratadine 10 MG Tablet PO (05:38)
[2020-07-20] MEDS: Gabapentin 300 MG Capsule PO ×3 (05:38→21:16)
[2020-07-20] MEDS: LORazepam 0.5 MG Tablet PO (05:38)
[2020-07-20] MEDS: Fluticasone 0.05% 1 SPRAY NASAL.SRY 2 SPRAY NASAL (05:39)
[2020-07-20] MEDS: Iron Polysaccharide Complex 150 MG CAPSULE PO (09:00)
[2020-07-20] MEDS: Aspirin E.C. 81 MG Tablet PO (09:01)
[2020-07-20 10:00] VITALS: PULSE 74; RESP 18; O2SAT 95
[2020-07-20 15:52] VITALS: BP 132/62; PULSE 75; RESP 18; TEMP 37.1; O2SAT 95
[2020-07-20] MEDS: Atorvastatin Calcium 10 MG Tablet PO (21:16)
[2020-07-20] MEDS: Montelukast 10 MG Tablet PO (21:16)
[2020-07-21 05:00] VITALS: BP 132/71; PULSE 75; RESP 16; TEMP 36.6; O2SAT 94
[2020-07-21 05:51] LABS: Absolute Lymphocyte Count 1.05 X10^3/uL (0.83-4.51); Absolute Neutrophil Count 4.6 X10^3/uL (2.0-7.7); Basophil# 0.08 X10^3/uL; Basophil% 1.1 % (0-1); Eosinophil# 0.53 X10^3/uL; Eosinophils% 7.5 % (0-5); Hematocrit 31.8 % (37-47); Hemoglobin 9.7 g/dL (12.0-15.0); Lymphocyte # 1.05 X10^3/ul (4.0); Lymphocyte % 14.9 % (19-41); Mean Corp Hgb Conc 30.5 g/dL (32-36); Mean Corpuscular Hgb 27.7 pg (27.0-32.0); Mean Corpuscular Volume 90.9 fL (81-99); Mean Platelet Vol. 8.6 fl (6.2-12.0); Monocyte# 0.69 X10^3/uL; Monocyte% 9.8 % (0-10); NRBC Flagged by Analyzer 0 % (0-5); Neutrophil # 4.63 X10^3/uL (2.7-7.7); Neutrophil % 65.6 % (47-70); Platelet Count 461 K/mm3 (150-450); RBC Distribution Width CV 14.2 % (11.6-14.6); RBC Distribution Width SD 46.7 fl (35.1-43.9); White Blood Count 7.1 K/mm3 (4.4-11.0)
[2020-07-21] MEDS: Ascorbic Acid 500 MG Tablet 1000 MG PO (05:59)
[2020-07-21] MEDS: Acetaminophen 500 MG Tablet 1000 MG PO ×3 (05:59→21:12)
[2020-07-21] MEDS: LORazepam 0.5 MG Tablet PO (05:59)
[2020-07-21] MEDS: Gabapentin 300 MG Capsule PO ×3 (06:00→21:12)
[2020-07-21] MEDS: Loratadine 10 MG Tablet PO (06:00)
[2020-07-21] MEDS: Spironolactone 25 MG Tablet PO (06:00)
[2020-07-21] MEDS: Calcium (Elemental) 500 MG Tablet PO ×2 (06:00→17:20)
[2020-07-21] MEDS: Pantoprazole Sodium 20 MG Tablet PO (06:00)
[2020-07-21] MEDS: Vitamin B Comp W-C Capsule 1 CAP PO (06:01)
[2020-07-21] MEDS: Fluticasone 0.05% 1 SPRAY NASAL.SRY 2 SPRAY NASAL (06:02)
[2020-07-21] MEDS: Enoxaparin 40 MG/0.4 ML Syringe SC (06:02)
[2020-07-21 06:11] LABS: Anion Gap 7 (5-15); BUN 13 mg/dL (7-18); BUN/Creat Ratio 19.5 RATIO (10-20); Calcium,Total 8.9 mg/dL (8.5-10.1); Chloride 101 mmol/L (98-107); Creatinine, Serum 0.67 mg/dL (0.55-1.02); EST Glomerular Filtration Rate 92 mL/min (>60); Est Glom Filt Rate - Afr Amer 111 mL/min (>60); Estimated Creatinine Clearance 39.04 ml/min; Glucose 98 mg/dL (74-106); Potassium 4.2 mmol/L (3.5-5.1); Sodium Level 135 mmol/L (136-145)
[2020-07-21] MEDS: Iron Polysaccharide Complex 150 MG CAPSULE PO (08:24)
[2020-07-21] MEDS: Aspirin E.C. 81 MG Tablet PO (08:24)
[2020-07-21] MEDS: Tuberculin,Purif.prot.deriv. 50 TU/ML Vial 5 ML ID (11:39)
[2020-07-21 15:40] VITALS: BP 135/63; PULSE 75; RESP 16; TEMP 36.7; O2SAT 94
[2020-07-21] MEDS: oxyCODONE 5 MG Tablet 10 MG PO (17:19)
[2020-07-21] MEDS: Montelukast 10 MG Tablet PO (21:12)
[2020-07-21] MEDS: Atorvastatin Calcium 10 MG Tablet PO (21:12)
[2020-07-21 21:32] VITALS: PULSE 76; RESP 16; O2SAT 97
[2020-07-22] MEDS: oxyCODONE 5 MG Tablet 10 MG PO (01:47)
[2020-07-22 05:00] VITALS: BP 147/68; PULSE 82; RESP 16; TEMP 36.6; O2SAT 93
[2020-07-22] MEDS: Ascorbic Acid 500 MG Tablet 1000 MG PO (05:46)
[2020-07-22] MEDS: LORazepam 0.5 MG Tablet PO (05:46)
[2020-07-22] MEDS: Gabapentin 300 MG Capsule PO ×3 (05:47→20:30)
[2020-07-22] MEDS: Spironolactone 25 MG Tablet PO (05:47)
[2020-07-22] MEDS: Pantoprazole Sodium 20 MG Tablet PO (05:47)
[2020-07-22] MEDS: Calcium (Elemental) 500 MG Tablet PO ×2 (05:48→17:09)
[2020-07-22] MEDS: Acetaminophen 500 MG Tablet 1000 MG PO ×3 (05:48→20:30)
[2020-07-22] MEDS: Vitamin B Comp W-C Capsule 1 CAP PO (05:48)
[2020-07-22] MEDS: Loratadine 10 MG Tablet PO (05:48)
[2020-07-22] MEDS: Senna/Docusate Sodium 1 Tablet 2 TABLET PO ×2 (05:49→17:09)
[2020-07-22] MEDS: Fluticasone 0.05% 1 SPRAY NASAL.SRY 2 SPRAY NASAL (05:49)
[2020-07-22] MEDS: Enoxaparin 40 MG/0.4 ML Syringe SC (05:50)
[2020-07-22] MEDS: Aspirin E.C. 81 MG Tablet PO (09:11)
[2020-07-22] MEDS: Iron Polysaccharide Complex 150 MG CAPSULE PO (09:11)
[2020-07-22 10:00] VITALS: PULSE 80; RESP 18; O2SAT 96
--- NOTE | 2020-07-22 15:04 | NURSING ---
Pt just got back from ortho appointment, no new orders at this time
[2020-07-22 16:00] VITALS: BP 126/60; PULSE 78; RESP 16; TEMP 37; O2SAT 95
[2020-07-22] MEDS: Atorvastatin Calcium 10 MG Tablet PO (20:30)
[2020-07-22] MEDS: Montelukast 10 MG Tablet PO (20:31)
[2020-07-23 05:00] VITALS: BP 128/64; PULSE 86; RESP 18; TEMP 36.7; O2SAT 96
[2020-07-23] MEDS: Ascorbic Acid 500 MG Tablet 1000 MG PO (05:36)
[2020-07-23] MEDS: Spironolactone 25 MG Tablet PO (05:36)
[2020-07-23] MEDS: Pantoprazole Sodium 20 MG Tablet PO (05:36)
[2020-07-23] MEDS: Senna/Docusate Sodium 1 Tablet 2 TABLET PO (05:37)
[2020-07-23] MEDS: Acetaminophen 500 MG Tablet 1000 MG PO ×3 (05:38→20:42)
[2020-07-23] MEDS: Calcium (Elemental) 500 MG Tablet PO ×2 (05:38→17:18)
[2020-07-23] MEDS: Loratadine 10 MG Tablet PO (05:38)
[2020-07-23] MEDS: Vitamin B Comp W-C Capsule 1 CAP PO (05:38)
[2020-07-23] MEDS: Fluticasone 0.05% 1 SPRAY NASAL.SRY 2 SPRAY NASAL (05:39)
[2020-07-23] MEDS: Enoxaparin 40 MG/0.4 ML Syringe SC (05:39)
[2020-07-23] MEDS: Gabapentin 300 MG Capsule PO ×3 (05:39→20:42)
[2020-07-23] MEDS: Polyethylene Glycol 3350 17 GM PACKET PO (05:39)
[2020-07-23] MEDS: LORazepam 0.5 MG Tablet PO (05:47)
[2020-07-23] MEDS: Iron Polysaccharide Complex 150 MG CAPSULE PO (07:47)
[2020-07-23] MEDS: Aspirin E.C. 81 MG Tablet PO (07:47)
--- NOTE | 2020-07-23 12:56 | CASEMGMT ---
Addendum entered by Masha Rivera 07/23/20 13:02: Notified [facility] for Dr. Christianson's office to order bone stimulator and DC date. Original Note: Social Work Insurance issued LCD 07/24. Spoke with pt about DC plans. Pt requesting to DC 07/24. IDT agreeable. Pt requesting [facility] for outpatient PT/OT. Referral made. No DME needs. Dtr to transport. Spoke with dtr to confirm DC plans. Dtr agreeable. Plan: DC home with and dtr 07/24, [facility] PT/OT, no DME Masha Rivera, WIN SENIOR J2EE DEVELOPER
[2020-07-23 13:31] VITALS: BP 136/59; PULSE 75; RESP 16; TEMP 36.3; O2SAT 94
--- NOTE | 2020-07-23 14:38 | NURSING ---
Resident and family updated on COVID status on the unit.
--- NOTE | 2020-07-23 15:42 | NURSING ---
PT STATED SHE UPDATES FAMILY
[2020-07-23] MEDS: oxyCODONE 5 MG Tablet 10 MG PO (17:17)
--- NOTE | 2020-07-23 19:28 | PCM.DC ---
- Discharge Diagnoses Current Active Problems: Current Active and Chronic Problems Debility (Acute) Lumbar spinal stenosis (Chronic) Transient ischemic attack (Chronic) Asthma (Chronic) Anxiety (Chronic) Hypertension (Chronic) Hyperlipidemia (Chronic) Depression (Chronic) Vertigo (Chronic) Diabetes mellitus (Chronic) Diet controlled You will use the following diet at home:: No restrictions, Regular Your food should be the consistency of: Regular Your liquids should be the consistency of: Regular/Thin Discharge Activity: Return to Normal Activity, May Shower, Use Walker Weight Bearing Status: Weight bearing as tolerated Call your doctor if you observe: Fever of 101 or Higher, Inability to urinate, Inability to have a bowel movement, Shortness of breath, Chest pain, Uncontrolled pain Allergies/Adverse Reactions: Allergies azithromycin [From Zithromax] Allergy (Verified 07/22/20 13:44) Hives Sulfa (Sulfonamide Antibiotics) Allergy (Verified 07/22/20 13:44) Hives Medications to take at Discharge Calcium Carbonate [Calcium] 600 mg PO BID 10/26/15 Cholecalciferol (VIT D3) [Vitamin D3] 1,000 unit PO DAILY 10/26/15 Montelukast [Singulair] 10 mg PO QHS 10/26/15 Vitamin B Complex 1 ea PO DAILY 10/26/15 Atorvastatin Calcium [Lipitor] 10 mg PO QHS 06/19/16 Spironolactone 25 mg PO DAILY 10/15/18 cetirizine 10 mg tablet 10 mg PO DAILY 05/21/20 estradiol 1 g VAGINAL 2XW PRN 05/21/20 Ascorbic Acid [Vitamin C] 1,000 mg PO DAILY 07/13/20 Aspirin E.C. [Ecotrin] 81 mg PO DAILY@0800 07/13/20 Fluticasone 0.05% [Flonase Nasal [place]] 2 sprays NASAL DAILY 07/13/20 Victor-3 Fatty Acids [Fish Oil] 500 mg PO DAILY 07/13/20 Omeprazole [Prilosec] 20 mg PO DAILY 07/13/20 Acetaminophen [Tylenol] 1,000 mg PO TID tablet 07/23/20 Gabapentin [Neurontin] 300 mg PO TID #90 cap 07/23/20 Iron Polysaccharide Complex [Ferrex 150] 150 mg PO DAILYCM #30 cap 07/23/20 Lorazepam [Ativan] 0.5 mg PO DAILY #30 tablet 07/23/20 Oxycodone [Oxyir] 10 mg PO Q4H PRN PRN #36 tablet 07/23/20 Polyethylene Glycol 3350 [Miralax] 17 gm PO DAILY #30 packet 07/23/20 Senna/Docusate Sodium [Senokot-S] 2 tab PO BID #120 tab 07/23/20 The following prescriptions were given: Lorazepam [Ativan] 0.5 mg PO DAILY #30 tablet Transmission Status: Sent to [facility] Iron Polysaccharide Complex [Ferrex 150] 150 mg PO DAILYCM #30 cap Transmission Status: Pending to [facility] Polyethylene Glycol 3350 [Miralax] 17 gm PO DAILY #30 packet Transmission Status: Pending to [facility] Gabapentin [Neurontin] 300 mg PO TID #90 cap Transmission Status: Pending to [facility] Oxycodone [Oxyir] 10 mg PO Q4H PRN PRN #36 tablet PRN Reason: Pain Score 4-10 Transmission Status: Sent to [facility] Senna/Docusate Sodium [Senokot-S] 2 tab PO BID #120 tab Transmission Status: Pending to [facility] Primary Care Physician: Jorge Carbajal DO [Primary Care Provider] - Please follow up with your Primary Care Physician in: 1 week. Test Results: Test results from this visit will be discussed in further detail at your follow-up appointment, if applicable. Please Follow Up With: Luis Manuel Osman PA When: 2 weeks. Proposed Discharge Date: 07/24/20
--- NOTE | 2020-07-23 19:30 | DS.PCM_ITS ---
Discharge Date and Diagnosis - Problem List Patient Problems: Active and Suspected Problems Debility (Acute) Date of Admission: 07/13/20 Date of Discharge: 07/24/20 - Primary Discharge Diagnosis Acute Problems: Active Problems Debility (Acute) - Secondary Discharge Diagnosis Chronic Problems: Chronic Problems Tinnitus (Chronic) Lumbar spinal stenosis (Chronic) Transient ischemic attack (Chronic) Asthma (Chronic) Anxiety (Chronic) Hypertension (Chronic) Hyperlipidemia (Chronic) Depression (Chronic) TIA (transient ischemic attack) (Chronic) Dependent edema (Chronic) Vertigo (Chronic) Mild intermittent asthma (Chronic) Diabetes mellitus (Chronic) Diet controlled Hospital Course and Treatment Imaging Results: 07/13/20 21:06 Diet: Regular - General Type of Dietary Supplement:: Glucerna Shake Diet Comments: 120 ml glucerna shake TID w/ meals Microbiology 07/22/20 12:15 Nasal Secretion SARS-CoV-2 Antigen (Rapid) - Final Operations: None Procedures: None Summary of Care Provided: The patient is a 75 year old Female with below past medical history hospitalized for lumbar laminectomy/fusion 07/09/20, postoperative course complicated by anemia requiring transfusion, cough, admitted to TCU with debility, here for rehabilitation, strengthening, prior to discharge home with . Discharge home with and daughter, [facility] PT/[facility], no durable medical equipment needs. Patient Problems: Active and Suspected Problems Debility (Acute) - Physical Exam Vitals/I&O's: Vital Signs Temp Pulse Resp BP Pulse Ox 97.3 F L 75 16 136/59 H 94 07/23/20 13:31 07/23/20 13:31 07/23/20 13:31 07/23/20 13:31 07/23/20 13:31 Oxygen Delivery Method Room Air Weight: 77.281 kg Body Mass Index (BMI) 32.1 Finger Stick Blood Glucose 98 Intake and Output for Last 24 Hours 07/21/20 07/22/20 07/23/20 23:59 23:59 23:59 Intake Total 980 / 980 1400 / 1400 480 / 480 Balance 980 / 980 1400 / 1400 480 / 480 Microbiology Past 72 Hours 07/22/20 12:15 Nasal Secretion SARS-CoV-2 Antigen (Rapid) - Final Current Medications Acetaminophen (Acetaminophen 500 Mg Tablet) 1,000 mg PO TID GEMMA Last Admin: 07/23/20 13:09 Dose: 1,000 mg Documented by: Albuterol Sulfate (Albuterol 2.5 Mg/3 Ml Vial.Neb.) 2.5 mg INHALATION Q2H PRN PRN PRN Reason: SOB &/OR WHEEZING Ascorbic Acid (Ascorbic Acid 500 Mg Tablet) 1,000 mg PO DAILY [facility] Last Admin: 07/23/20 05:36 Dose: 1,000 mg Documented by: Aspirin (Aspirin E.C. 81 Mg Tablet) 81 mg PO DAILY@0800 [facility] Last Admin: 07/23/20 07:47 Dose: 81 mg Documented by: Atorvastatin Calcium (Atorvastatin Calcium 10 Mg Tablet) 10 mg PO QHS [facility] Last Admin: 07/22/20 20:30 Dose: 10 mg Documented by: Bisacodyl (Bisacodyl 10 Mg Suppository) 10 mg RECTAL DAILY PRN PRN Reason: Constipation Calcium Carbonate (Calcium (Elemental) 500 Mg Tablet) 500 mg PO BID [facility] Last Admin: 07/23/20 17:18 Dose: 500 mg Documented by: Cholecalciferol (Cholecalciferol (Vit D3) 1,000 Unit (25mcg)) 2,000 unit PO DAILY [facility] Last Admin: 07/23/20 05:37 Dose: 2,000 unit Documented by: Enoxaparin Sodium (Enoxaparin 40 Mg/0.4 Ml Syringe) 40 mg SC DAILY [facility] Last Admin: 07/23/20 05:39 Dose: 40 mg Documented by: Fluticasone Propionate (Fluticasone 0.05% 1 Treece Nasal.Sry) 2 spray NASAL NICANOR LY [facility] Last Admin: 07/23/20 05:39 Dose: 2 spray Documented by: Gabapentin (Gabapentin 300 Mg Capsule) 300 mg PO TID [facility] Last Admin: 07/23/20 13:09 Dose: 300 mg Documented by: Loratadine (Loratadine 10 Mg Tablet) 10 mg PO DAILY [facility] Last Admin: 07/23/20 05:38 Dose: 10 mg Documented by: Lorazepam (Lorazepam 0.5 Mg Tablet) 0.5 mg PO DAILY [facility] Last Admin: 07/23/20 05:47 Dose: 0.5 mg Documented by: Magnesium Hydroxide (Magnesium Hydroxide 30 Ml Udc) 30 ml PO DAILY PRN PRN Reason: Constipation Montelukast Sodium (Montelukast 10 Mg Tablet) 10 mg PO QHS [facility] Last Admin: 07/22/20 20:31 Dose: 10 mg Documented by: Multivitamins (Vitamin B Comp W-C Capsule) 1 capsule PO DAILY [facility] Last Admin: 07/23/20 05:38 Dose: 1 capsule Documented by: Ondansetron HCl (Ondansetron Odt 4 Mg Tablet) 4 mg PO Q8H PRN PRN PRN Reason: NAUSEA Last Admin: 07/15/20 05:47 Dose: 4 mg Documented by: Oxycodone HCl (Oxycodone 5 Mg Tablet) 10 mg PO Q4H PRN PRN PRN Reason: Pain Score 4-10 Last Admin: 07/23/20 17:17 Dose: 10 mg Documented by: Pantoprazole Sodium (Pantoprazole Sodium 20 Mg Tablet) 20 mg PO DAILY [facility] Last Admin: 07/23/20 05:36 Dose: 20 mg Documented by: Polyethylene Glycol (Polyethylene Glycol 3350 17 Gm Packet) 17 gm PO DAILY [facility] Last Admin: 07/23/20 05:39 Dose: 17 gm Documented by: Polysaccharide Iron Complex (Iron Polysaccharide Complex 150 Mg Capsule) 150 mg PO DAILYCM [facility] Last Admin: 07/23/20 07:47 Dose: 150 mg Documented by: Senna/Docusate Sodium (Senna/Docusate Sodium 1 Tablet) 2 tablet PO BID [facility] Last Admin: 07/23/20 11:40 Dose: Not Given Documented by: Spironolactone (Spironolactone 25 Mg Tablet) 25 mg PO DAILY [facility] Last Admin: 07/23/20 05:36 Dose: 25 mg Documented by: Discharge Diet: No Restrictions Discharge Activity: Return to Normal Activity, May Shower, Use Walker Weight Bearing Status: Weight bearing as tolerated Call your doctor if you observe: Fever of 101 or Higher, Inability to urinate, Inability to have a bowel movement, Shortness of breath, Chest pain, Uncontrolled pain Home Medications: Medications to take at Discharge Calcium Carbonate [Calcium] 600 mg PO BID 10/26/15 Cholecalciferol (VIT D3) [Vitamin D3] 1,000 unit PO DAILY 10/26/15 Montelukast [Singulair] 10 mg PO QHS 10/26/15 Vitamin B Complex 1 ea PO DAILY 10/26/15 Atorvastatin Calcium [Lipitor] 10 mg PO QHS 06/19/16 Spironolactone 25 mg PO DAILY 10/15/18 cetirizine 10 mg tablet 10 mg PO DAILY 05/21/20 estradiol 1 g VAGINAL 2XW PRN 05/21/20 Ascorbic Acid [Vitamin C] 1,000 mg PO DAILY 07/13/20 Aspirin E.C. [Ecotrin] 81 mg PO DAILY@0800 07/13/20 Fluticasone 0.05% [Flonase Nasal Treece] 2 sprays NASAL DAILY 07/13/20 [place]-3 Fatty Acids [Fish Oil] 500 mg PO DAILY 07/13/20 Omeprazole [Prilosec] 20 mg PO DAILY 07/13/20 Acetaminophen [Tylenol] 1,000 mg PO TID tablet 07/23/20 Gabapentin [Neurontin] 300 mg PO TID #90 cap 07/23/20 Iron Polysaccharide Complex [Ferrex 150] 150 mg PO DAILYCM #30 cap 07/23/20 Lorazepam [Ativan] 0.5 mg PO DAILY #30 tablet 07/23/20 Oxycodone [Oxyir] 10 mg PO Q4H PRN PRN #36 tablet 07/23/20 Polyethylene Glycol 3350 [Miralax] 17 gm PO DAILY #30 packet 07/23/20 Senna/Docusate Sodium [Senokot-S] 2 tab PO BID #120 tab 07/23/20 Following Prescriptions Were Given to Patient: Lorazepam [Ativan] 0.5 mg PO DAILY #30 tablet Transmission Status: Sent to [facility] Iron Polysaccharide Complex [Ferrex 150] 150 mg PO DAILYCM #30 cap Transmission Status: Pending to [facility] Polyethylene Glycol 3350 [Miralax] 17 gm PO DAILY #30 packet Transmission Status: Pending to [facility] Gabapentin [Neurontin] 300 mg PO TID #90 cap Transmission Status: Pending to [facility] Oxycodone [Oxyir] 10 mg PO Q4H PRN PRN #36 tablet PRN Reason: Pain Score 4-10 Transmission Status: Sent to [facility] Senna/Docusate Sodium [Senokot-S] 2 tab PO BID #120 tab Transmission Status: Pending to [facility] Primary Care Physician: Jorge Carbajal DO [Primary Care Provider] - Please follow up with your Primary Care Physician in: 1 week. Please Follow Up With: Wayt,Luis Manuel PA, PA When: 2 weeks. Disposition: Home Minutes spent on discharge:: 30 Patient Condition:: Stable Medical Necessity - Tobacco Use Smoking Status: Never smoker Tobacco Use: Non-smoker Meaningful Use Info Meaningful Use Diagnoses (Choose all that apply): None applicable
[2020-07-23] MEDS: Montelukast 10 MG Tablet PO (20:42)
[2020-07-23] MEDS: Atorvastatin Calcium 10 MG Tablet PO (20:42)
[2020-07-23 21:30] VITALS: PULSE 84; RESP 18; O2SAT 98
[2020-07-24] MEDS: oxyCODONE 5 MG Tablet 10 MG PO (00:09)
[2020-07-24 00:12] VITALS: BP 130/60; PULSE 74; RESP 15; TEMP 37.2; O2SAT 94
[2020-07-24] MEDS: Vitamin B Comp W-C Capsule 1 CAP PO (05:48)
[2020-07-24] MEDS: Loratadine 10 MG Tablet PO (05:48)
[2020-07-24] MEDS: Enoxaparin 40 MG/0.4 ML Syringe SC (05:48)
[2020-07-24] MEDS: Spironolactone 25 MG Tablet PO (05:48)
[2020-07-24] MEDS: Fluticasone 0.05% 1 SPRAY NASAL.SRY 2 SPRAY NASAL (05:49)
[2020-07-24] MEDS: Calcium (Elemental) 500 MG Tablet PO (05:50)
[2020-07-24] MEDS: Senna/Docusate Sodium 1 Tablet 2 TABLET PO (05:50)
[2020-07-24] MEDS: Gabapentin 300 MG Capsule PO (05:50)
[2020-07-24] MEDS: Pantoprazole Sodium 20 MG Tablet PO (05:50)
[2020-07-24] MEDS: Acetaminophen 500 MG Tablet 1000 MG PO (05:50)
[2020-07-24] MEDS: Ascorbic Acid 500 MG Tablet 1000 MG PO (05:51)
[2020-07-24] MEDS: LORazepam 0.5 MG Tablet PO (05:59)
[2020-07-24] MEDS: Aspirin E.C. 81 MG Tablet PO (07:56)
[2020-07-24] MEDS: Iron Polysaccharide Complex 150 MG CAPSULE PO (07:56)
[2020-07-24 09:08] VITALS: PULSE 80; RESP 16; O2SAT 95
[2020-07-24 09:32] VITALS: BP 125/61; PULSE 80; RESP 16; TEMP 36.7; O2SAT 95
--- NOTE | 2020-07-25 10:47 | MDS.RN ---
Information for the mds was obtained from review of the clinical record, interview of resident, staff, and direct observation of resident's care.
== END 2020-07-24 10:00 | disposition home or self-care (01) | DRG 561 ==
PROVIDERS: Admitting Provider Family Medicine Geriatric Medicine; PCP Student in an Organized Health Care Education/Training Program; Visit Provider Family Medicine Geriatric Medicine
DX: Z47.89 Encounter for other orthopedic aftercare (principal); E11.9 Type 2 diabetes mellitus without complications; E78.5 Hyperlipidemia, unspecified; I10 Essential (primary) hypertension; F32.9 Major depressive disorder, single episode, unspecified; M48.061 Spinal stenosis, lumbar region without neurogenic claudication; F41.9 Anxiety disorder, unspecified; J45.20 Mild intermittent asthma, uncomplicated; K21.9 Gastro-esophageal reflux disease without esophagitis; E55.9 Vitamin D deficiency, unspecified; Z98.1 Arthrodesis status
CPT/HCPCS: 36415; 80048; 85025; 87426; 94640; 97110; 97116; 97162; 97165; 97530; 97535; 97802

== ENCOUNTER 2021-05-12 14:59 | Outpatient (CLI) | payer MEDICARE, SELFPAY ==
[2021-05-12] MEDS: 0.9% Saline Lock 10 ML Syringe IV (15:24)
[2021-05-12 15:34] VITALS: BP 123/58; PULSE 80; RESP 16; TEMP 36.6; O2SAT 94; BMI 32.3
[2021-05-12 16:22] VITALS: BP 117/54; PULSE 71; RESP 18; TEMP 36.7; O2SAT 92
[2021-05-12 17:12] VITALS: BP 112/85; PULSE 69; RESP 18; TEMP 36.6; O2SAT 94
== END 2021-05-12 17:22 | disposition home or self-care (01) ==
LOC: MS3OUT 14:59 → MS3 15:02
PROVIDERS: PCP Student in an Organized Health Care Education/Training Program; Referring Provider Nurse Practitioner Adult Health; Visit Provider Nurse Practitioner Adult Health
DX: Z23 Encounter for immunization (principal); U07.1 COVID-19
CPT/HCPCS: J7050; M0243; A4216; Q0240; Q0244

== ENCOUNTER 2022-09-01 10:34 | Emergency (ER) | payer MEDICARE, SELFPAY ==
[2022-09-01 10:35] VITALS: BP 138/60; PULSE 75; RESP 18; TEMP 35.5; O2SAT 96; BMI 29.2
--- NOTE | 2022-09-01 11:19 | EKG12_ITS ---
Test Reason : Blood Pressure : / mmHG Vent. Rate : 078 BPM Atrial Rate : 078 BPM P-R Int : 198 ms QRS Dur : 070 ms QT Int : 398 ms P-R-T Axes : 051 002 085 degrees QTc Int : 453 ms Normal sinus rhythm with sinus arrhythmia Nonspecific ST and T wave abnormality Abnormal ECG Confirmed by RITO RAMSAY, LOU ([id number]), makeup editor PASCALE CATHERINE ([id number]) on 09/03/2022 11:31:20 AM Referred By: TONO Confirmed By:LOU VERAS MD
[2022-09-01 11:46] LABS: Absolute Lymphocyte Count 0.52 X10^3/uL (0.83-4.51); Basophil# 0.04 X10^3/uL; Basophil% 0.6 % (0-1); Eosinophil# 0.18 X10^3/uL; Eosinophils% 2.5 % (0-5); Hematocrit 47.7 % (37-47); Lymphocyte # 0.52 X10^3/ul (0.83-4.51); Lymphocyte % 7.3 % (19-41); Mean Corp Hgb Conc 31.4 g/dL (32-36); Mean Corpuscular Hgb 28.9 pg (27.0-32.0); Mean Corpuscular Volume 91.9 fL (81-99); Mean Platelet Vol. 9.1 fl (6.2-12.0); Monocyte# 0.33 X10^3/uL; Monocyte% 4.7 % (0-10); NRBC Flagged by Analyzer 0 % (0-5); Neutrophil # 5.97 X10^3/uL (2.7-7.7); Neutrophil % 84.2 % (47-70); POSITIVE DIFFERENTIAL YES; Platelet Count 275 K/mm3 (150-450); RBC Distribution Width CV 13.4 % (11.6-14.6); RBC Distribution Width SD 45.6 fl (35.1-43.9); Red Blood Count 5.19 M/mm3 (4.2-5.4); White Blood Count 7.1 K/mm3 (4.4-11.0)
[2022-09-01 11:48] LABS: Differential Indicated SCAN CRITERIA MET
[2022-09-01 11:59] LABS: Prothrombin Time (Protime)PT. 13.2 SECONDS (11.7-14.9)
[2022-09-01 12:01] LABS: Anion Gap 6 (5-15); BUN 12 mg/dL (7-18); BUN/Creat Ratio 15.9 RATIO (10-20); Calcium,Total 9.8 mg/dL (8.5-10.1); Chloride 106 mmol/L (98-107); Creatinine, Serum 0.76 mg/dL (0.55-1.02); EST Glomerular Filtration Rate 79 mL/min (>60); Est Glom Filt Rate - Afr Amer 96 mL/min (>60); Estimated Creatinine Clearance 37.85 ml/min; Glucose 123 mg/dL (74-106); Partial Thromboplast Time 25.3 Seconds (24.1-36.2); Potassium 3.8 mmol/L (3.5-5.1); Sodium Level 141 mmol/L (136-145)
[2022-09-01 12:12] LABS: Differential Comment SCANNED
[2022-09-01 14:43] VITALS: BP 131/64; PULSE 66; RESP 19; O2SAT 93
--- NOTE | 2022-09-01 15:06 | EX.ED.DYSGE1 ---
HPI History of Present Illness Chief Complaint: Dizziness Narrative Narrative: 77-year-old female with vertiginous symptoms. Patient states onset was about 3 days ago. Patient has a history of vertigo. Patient states she usually does the exercises. Her symptoms usually improved. She has been doing these and the last time she did them was yesterday. She does not take meclizine. She was never prescribed this for her vertigo. She states she used to follow-up with a physician for this but he was thrown out of [facility]. She does not recall his name. Patient was seen in urgent care today. Because she had dizziness and vomiting she was referred to the emergency room. She denies headache, blurred vision, slurred speech, facial droop, paresthesia, disability. No chest pain or shortness of breath. [facility] Medical History Borderline diabetes Vertigo Home Medications calcium carbonate 600 mg calcium (1,500 mg) tablet 600 mg PO BID Check with primary doctor 10/26/15 [History Last Taken 10/25/15 22:00] cholecalciferol (vitamin D3) 25 mcg (1,000 unit) tablet 2,000 unit PO DAILY Check with primary doctor 10/26/15 [History Last Taken 10/25/15 22:00] montelukast 10 mg tablet 10 mg PO QHS Check with primary doctor 10/26/15 [History Last Taken 10/25/15 22:00] vitamin B complex 1 ea PO DAILY Check with primary doctor 10/26/15 [History Last Taken 10/25/15 22:00] atorvastatin 40 mg tablet 10 mg PO QHS cholesterol 06/19/16 [History Last Taken 07/12/20 20:39] spironolactone 25 mg tablet 25 mg PO DAILY Check with primary doctor 10/15/18 [History Last Taken Unknown] cetirizine 10 mg tablet 10 mg PO BID Check with primary doctor 05/21/20 [History Last Taken Unknown] estradiol 0.01% (0.1 mg/gram) vaginal cream (Estrace) 1 g vaginal 2XW PRN menopause symptoms 05/21/20 [History Last Taken Unknown] ascorbic acid (vitamin C) 1,000 mg tablet 1,000 mg PO DAILY Check with primary doctor 07/13/20 [History Last Taken Unknown] aspirin 81 mg tablet,delayed release 81 mg PO DAILY@0800 Check with primary doctor 07/13/20 [History Last Taken Unknown] fluticasone propionate 50 mcg/actuation nasal spray,suspension 2 sprays NASAL DAILY Check with primary doctor 07/13/20 [History Last Taken Unknown] omega 3-dha 60 mg-epa 90 mg-fish oil 500 mg capsule, delayed release 500 mg PO DAILY Check with primary doctor 07/13/20 [History Last Taken Unknown] omeprazole 20 mg capsule,delayed release 20 mg PO DAILY Check with primary doctor 07/13/20 [History Last Taken Unknown] polysaccharide iron complex 150 mg iron capsule 150 mg PO DAILYCM #30 caps 07/23/20 [Rx Last Taken Unknown] mirabegron 25 mg tablet,extended release 24 hr 25 mg PO DAILY 12/27/20 [History Last Taken Unknown] valacyclovir 500 mg tablet 500 mg PO DAILY 12/27/20 [History Last Taken Unknown] albuterol sulfate 2.5 mg/3 mL (0.083 %) solution for nebulization 2.5 mg inhalation Q6H PRN Shortness Of Breath Or Wheezing 05/12/21 [History Last Taken Unknown] gabapentin 300 mg tablet 300 mg PO QHS 05/12/21 [History Last Taken Unknown] lorazepam 0.5 mg tablet 0.5 mg PO BID PRN Anxiety 05/12/21 [History Last Taken Unknown] fluoxetine 10 mg capsule 10 mg PO DAILY 09/01/22 [History Last Taken Unknown] meclizine 25 mg tablet 25 mg PO TID PRN dizziness #20 tabs 09/01/22 [Rx Last Taken Unknown] Allergy/AdvReac Type Severity Reaction Status Date / Time azithromycin [From Zithromax] Allergy Hives Verified 09/01/22 10:36 Sulfa (Sulfonamide Allergy Hives Verified 09/01/22 10:36 Antibiotics) Social History Smoking Status: Never smoker ROS ROS ED ROS Narrative Dizziness Constitutional Constitutional ED: Denies chills or fever(s) Eyes Eyes: Denies blurry vision or change in vision ENT ENT ED: Denies rhinorrhea or sore throat Cardiovascular Cardiovascular: Denies chest pain or palpitations Respiratory/Chest Respiratory/Chest: Denies cough or dyspnea Gastrointestinal Gastrointestinal: Denies abdominal pain or constipation Genitourinary Genitourinary ED: Denies dysuria or hematuria Musculoskeletal Musculoskeletal: Denies arthralgias or back pain Integumentary Denies rash Psychiatric Psychiatric: Denies anxiety EXAM Physical Exam Const Vital Signs: 09/01/22 10:35 09/01/22 14:43 09/01/22 14:45 Temperature 96 F L Temperature Source Temporal Pulse Rate 75 66 Respiratory Rate 18 19 H Respiratory Effort Respiratory Pattern Blood Pressure 138/60 H 131/64 H Blood Pressure Mean 86 86 Pulse Ox 96 93 Oxygen Delivery Method Room Air Room Air Room Air 09/01/22 14:57 Temperature Temperature Source Pulse Rate Respiratory Rate Respiratory Effort Normal Respiratory Pattern Normal Blood Pressure Blood Pressure Mean Pulse Ox Oxygen Delivery Method Positive well nourished General Appearance ED: NAD HEENT Reports moist mucous membranes HEENT Narrative: Positive [place]-Hallpike with nystagmus Eyes PERRL and EOMs intact bilaterally General Eye ED: Negative for pale conjunctiva or scleral icterus Neck no lymphadenopathy Resp normal respiratory effort and clear to auscultation bilaterally Auscultation: Negative for rales, rhonchi or wheezes Cardio regular rate and regular rhythm GI normal to inspection, nondistended, normoactive bowel sounds Extremity normal to inspection Neuro oriented x3 and CN's II-XII intact bilaterally Sensorium / Orientation: alert Motor Exam: strength 5/5 throughout Psych mental status grossly normal Skin no rashes or lesions noted and no wounds MDM MDM MDM Narrative Medical decision making narrative: Patient presenting with vertiginous dizziness. Differential includes but is not limited to TIA, stroke, vertigo. Patient does not have a headache. She does not have any focal neurologic deficits or lateralizing signs or symptoms. I suspect this is vertigo because she has reproducible dizziness on exam and a positive [place]-Hallpike. Due to heavy ER volumes she did have protocol lab work performed in the waiting room. CBC was obtained and white blood cell count, hemoglobin, platelets all within normal limits. PT/INR is also normal. Renal function and electrolytes within normal limits. High-sensitivity troponin is 4. Glucose slightly elevated at 123 without anion gap. EKG normal sinus rhythm with a ventricular rate of [address]-T wave changes. Patient was medicated with meclizine and on reevaluation she is ambulating through the hallway to go to the restroom. She feels much better. She wants to be discharged home. I feel this is reasonable with normal work-up and her symptoms resolving. Impression: 1. Benign positional vertigo Lab Data Labs: Laboratory Results - last 24 hr 09/01/22 09/01/22 09/01/22 11:34 11:34 11:34 WBC 7.1 RBC 5.19 Hgb 15.0 Hct 47.7 H MCV 91.9 MCH 28.9 MCHC 31.4 L RDW Std Deviation 45.6 H RDW Coeff of Guero 13.4 Plt Count 275 MPV 9.1 Immature Gran % (Auto) 0.700 Neut % (Auto) 84.2 H Lymph % (Auto) 7.3 L [place] % (Auto) 4.7 Eos % (Auto) 2.5 Baso % (Auto) 0.6 Absolute Neuts (auto) 6.0 Absolute Lymphs (auto) 0.52 L Nucleated RBC % 0 Differential Comment SCANNED PT 13.2 INR 1.0 APTT 25.3 Sodium 141 Potassium 3.8 Chloride 106 Carbon Dioxide 29.0 Anion Gap 6 BUN 12 Creatinine 0.76 Estim Creat Clear Calc 37.85 Est GFR (MDRD) Af Amer 96 Est GFR (MDRD) Non-Af 79 BUN/Creatinine Ratio 15.9 Glucose 123 H Calcium 9.8 Troponin I High Sens 09/01/22 11:34 WBC RBC Hgb Hct MCV MCH MCHC RDW Std Deviation RDW Coeff of Guero Plt Count MPV Immature Gran % (Auto) Neut % (Auto) Lymph % (Auto) [place] % (Auto) Eos % (Auto) Baso % (Auto) Absolute Neuts (auto) Absolute Lymphs (auto) Nucleated RBC % Differential Comment PT INR APTT Sodium Potassium Chloride Carbon Dioxide Anion Gap BUN Creatinine Estim Creat Clear Calc Est GFR (MDRD) Af Amer Est GFR (MDRD) Non-Af BUN/Creatinine Ratio Glucose Calcium Troponin I High Sens 4 Discharge Plan Triage Chief Complaint: Dizziness ED Provider: Amrik Perez Dx/Rx/DC Orders Instructions: ED BPV Vertigo Prescriptions: New meclizine 25 mg tablet 25 mg PO TID PRN (Reason: dizziness) Qty: 20 0RF No Action cetirizine 10 mg tablet 10 mg PO BID estradiol [Estrace] 0.01 % (0.1 mg/gram) cream 1 g VAGINAL 2XW PRN (Reason: menopause symptoms) mirabegron 25 mg tablet extended release 24 hr 25 mg PO DAILY valacyclovir 500 mg tablet 500 mg PO DAILY Label Comments: TAKE 2 TABLETS BY MOUTH NEEDED FOR 3 DAYS AT HERPES OUTBREAK calcium carbonate 600 MG tablet 600 mg PO BID Label Comments: Supplement montelukast 10 MG tablet 10 mg PO QHS Label Comments: Breathing vitamin B complex 1 EACH capsule 1 ea PO DAILY Label Comments: supplement cholecalciferol (vitamin D3) 1,000 UNIT tablet 2,000 unit PO DAILY Label Comments: supplement atorvastatin 40 MG tablet 10 mg PO QHS Label Comments: cholesterol spironolactone 25 tablet 25 mg PO DAILY ascorbic acid (vitamin C) 1,000 MG tablet 1,000 mg PO DAILY omeprazole 20 MG capsule 20 mg PO DAILY fluticasone propionate 1 SPRAY spray,suspension 2 sprays NASAL DAILY omega 9-upc-ite-fish oil 500 MG capsule,delayed release(DR/EC) 500 mg PO DAILY aspirin 81 MG tablet 81 mg PO DAILY@0800 Label Comments: heart health Rx Instructions: take one tablet daily for stroke prevention polysaccharide iron complex 150 MG capsule 150 mg PO DAILYCM Qty: 30 0RF albuterol sulfate 2.5 mg /3 mL (0.083 %) solution for nebulization 2.5 mg inhalation Q6H PRN (Reason: Shortness Of Breath Or Wheezing) Label Comments: USE 1 VIAL IN NEBULIZER EVERY 6 HOURS NEEDED FOR WHEEZING AND FOR SHORTNESS OF BREATH gabapentin 300 mg Tablet 300 mg PO QHS lorazepam 0.5 MG tablet 0.5 mg PO BID PRN (Reason: Anxiety) fluoxetine 10 mg Capsule 10 mg PO DAILY Primary Care Provider: Jorge Carbajal Referrals: Will Thompson MD [Med Staff - Courtesy Staff] - 3-5 Days Jorge Carbajal DO [Primary Care Provider] - Disposition Disposition: Home, Self Care Discharge Date/Time: 09/01/22 16:21
[2022-09-01] MEDS: Meclizine HCl 25 MG Tablet PO (15:11)
[2022-09-01 15:14] LABS: Troponin-I HS 4 pg/mL (3.0-54.0)
== END 2022-09-01 16:21 | disposition home or self-care (01) ==
PROVIDERS: Emergency Provider Student in an Organized Health Care Education/Training Program; PCP Student in an Organized Health Care Education/Training Program; Visit Provider Student in an Organized Health Care Education/Training Program
DX: H81.10 Benign paroxysmal vertigo, unspecified ear (principal)
CPT/HCPCS: 80048; 84484; 85025; 85610; 85730; 93005; 99285; A4216

== ENCOUNTER 2025-05-23 14:07 | Emergency (ER) | payer MEDICARE, SELFPAY ==
[2025-05-23 14:07] VITALS: BP 153/86; PULSE 71; RESP 16; TEMP 36.8; O2SAT 96; BMI 30.7
--- NOTE | 2025-05-23 15:16 | CT_ITS ---
PROCEDURE: CT/Sinus/Facial Bone
--- NOTE | 2025-05-23 15:16 | CT_ITS ---
PROCEDURE: CT/Brain/Head without Contrast
--- NOTE | 2025-05-23 15:26 | EX.ED.GENINJ ---
HPI History of Present Illness Chief Complaint: Head Injury Informant: patient Onset/Context/Timing Onset: Hours Mechanism/Context: Blunt Injury and Fall Current Severity: Mild Maximum Severity: Mild Associated Symptoms Associated Symptoms: Negative for Parasthesias, Weakness, Loss of function, Inability to ambulate, Loss of consciousness or Amnesia Narrative Narrative: 79-year-old female who was outside today tripped fell face forward striking her nose and face on the ground. No LOC. Said she got a was stunned for a little bit. She is on no blood thinners. She denies any neck, chest, abdominal back or extremity pain. This occurred around 1230. She has a mild headache. She has not had any vomiting. No weakness of her upper or lower extremity. Patient states she simply tripped she did not feel ill prior to the event. Prior similar symptoms: No Recent Illness/Hospitalization: No [facility] Medical History Borderline diabetes Vertigo Home Medications ?Medication ?Instructions ?Recorded ?Last Taken ?Type calcium carbonate 600 mg PO BID Check with primary 10/26/15 10/25/15 22:00 History doctor cholecalciferol (vitamin D3) 25 2,000 unit PO DAILY Check with 10/26/15 10/25/15 22:00 History mcg (1,000 unit) tablet primary doctor montelukast 10 mg tablet 10 mg PO QHS Check with primary 10/26/15 10/25/15 22:00 History doctor vitamin B complex 1 ea PO DAILY Check with primary 10/26/15 10/25/15 22:00 History doctor atorvastatin 40 mg tablet 10 mg PO QHS cholesterol 06/19/16 07/12/20 20:39 History spironolactone 25 mg tablet 25 mg PO DAILY Check with primary 10/15/18 Unknown History doctor cetirizine 10 mg tablet 10 mg PO BID Check with primary 05/21/20 Unknown History doctor estradiol 0.01% (0.1 mg/gram) 1 g vaginal 2XW PRN menopause 05/21/20 Unknown History vaginal cream (Estrace) symptoms ascorbic acid (vitamin C) 1,000 mg 1,000 mg PO DAILY Check with 07/13/20 Unknown History tablet primary doctor aspirin 81 mg tablet,delayed 81 mg PO DAILY@0800 Check with 07/13/20 Unknown History release primary doctor fluticasone propionate 50 2 sprays NASAL DAILY Check with 07/13/20 Unknown History mcg/actuation nasal primary doctor spray,suspension omega 3-dha 60 mg-epa 90 mg-fish 500 mg PO DAILY Check with primary 07/13/20 Unknown History oil 500 mg capsule, delayed release doctor omeprazole 20 mg capsule,delayed 20 mg PO DAILY Check with primary 07/13/20 Unknown History release doctor polysaccharide iron complex 150 mg 150 mg PO DAILYCM #30 caps 07/23/20 Unknown Rx iron capsule mirabegron 25 mg tablet,extended 25 mg PO DAILY 12/27/20 Unknown History release 24 hr valacyclovir 500 mg tablet 500 mg PO DAILY 12/27/20 Unknown History albuterol sulfate 2.5 mg/3 mL 2.5 mg inhalation Q6H PRN 05/12/21 Unknown History (0.083 %) solution for nebulization Shortness Of Breath Or Wheezing gabapentin 300 mg tablet 300 mg PO QHS 05/12/21 Unknown History lorazepam 0.5 mg tablet 0.5 mg PO BID PRN Anxiety 05/12/21 Unknown History fluoxetine 10 mg capsule 10 mg PO DAILY 09/01/22 Unknown History meclizine 25 mg tablet 25 mg PO TID PRN dizziness #20 tabs 09/01/22 Unknown Rx Allergy/AdvReac Type Severity Reaction Status Date / Time azithromycin (From Zithromax) Allergy Hives Verified 09/01/22 10:36 Sulfa (Sulfonamide Allergy Hives Verified 09/01/22 10:36 Antibiotics) Social History Smoking Status: Never smoker ROS ROS ED ROS Narrative Patient denies recent illness. Constitutional Constitutional ED: Denies chills or fever(s) Eyes Eyes: Denies blurry vision ENT ENT ED: Denies ear pain Cardiovascular Cardiovascular: Denies chest pain Respiratory/Chest Respiratory/Chest: Denies dyspnea Gastrointestinal Gastrointestinal: Denies abdominal pain Genitourinary Genitourinary ED: Denies dysuria Musculoskeletal Musculoskeletal: Denies arthralgias Integumentary Denies abscess Neurologic Neurologic: Denies headache(s) Psychiatric Psychiatric: Denies anxiety Endocrine Endocrinology: Denies cold intolerance Hematologic/Lymphatic Hematologic/Lymphatic: Denies easy bleeding, easy bruising or lymphadenopathy Allergic/Immunologic Allergic/Immunologic ED: Denies mouth swelling, tongue swelling or urticaria EXAM Physical Exam Narrative Exam Narrative: 71-year-old female sitting upright in bed. Mother female present in the room. Vital signs are stable afebrile. She does not look septic toxic. She is no distress. Pulse ox 96% on room air no hypoxia. H EENT exam pupils round react light. Active motions are intact. Dentition intact. No trouble with closing her mouth. No dental fractures. She does have bruising and swelling to the proximal bridge of her nose with bruising to the face from the perinasal area. Tenderness. Currently there is no active bleeding from her nose. Forehead and the rest of her face is nontender. Scalp is nontender no hematoma. C-spine and neck are nontender. Back and spine are nontender. Lungs are clear to auscultation. Heart regular rhythm no murmur. Chest wall and ribs are nontender. Abdomen is soft and nontender. Pelvic girdle intact. Moving all 4 extremities. Normal talent analyst strength. Normal dorsi plantarflexion. Normal range of motion. No deformity. Nontender. Neurologically she is awake alert. Answering questions following commands. No focal motor deficits. Const Vital Signs: 05/23/25 14:07 05/23/25 15:15 05/23/25 16:00 Temperature 98.2 F Temperature Source Oral Pulse Rate 71 86 Respiratory Rate 16 16 Respiratory Effort Normal Blood Pressure 153/86 H 150/48 H Blood Pressure Mean 108 82 Pulse Ox 96 98 Oxygen Delivery Method Room Air Room Air MDM MDM MDM Narrative Medical decision making narrative: 79-year-old female tripped and fell today landing face first on the ground probably has a proximal nasal fracture. Has bruising and tenderness. She had no LOC and is on no blood thinners but she was stunned. CT of her brain and facial bones will be obtained. She had no recent illness and otherwise exam is benign I do not think she needs any other imaging or labs. She did not want anything currently for pain. Repeat exam no change. We went over her CAT scan results. No acute cranial injury. No skull fracture. She does have a nasal fracture. Which we discussed. Discharged to home. Head injury instructions. Ice and Tylenol. Follow-up as needed. Return if worse. Radiography Diagnostic Testing: Clinical Impression(s) from Imaging Studies Brain CT 05/23/25 15:16 IMPRESSION: No acute intracranial abnormality. Nondisplaced fracture at the tip of the anterior nasal bone. Reading Location: [facility] Facial/Sinus 05/23/25 15:16 IMPRESSION: No acute intracranial abnormality. Nondisplaced fracture at the tip of the anterior nasal bone. Reading Location: [facility] Discharge Plan Triage Chief Complaint: Head Injury ED Provider: Praveen Quintero Dx/Rx/DC Orders Clinical Impression: Fall, Contusion of face, Fracture of nasal bone Instructions: ED Facial Contusion, ED Head Injury (Adult) Prescriptions: No Action cetirizine 10 mg tablet 10 mg PO BID estradiol [Estrace] 0.01 % (0.1 mg/gram) cream 1 g VAGINAL 2XW PRN (Reason: menopause symptoms) mirabegron 25 mg tablet extended release 24 hr 25 mg PO DAILY valacyclovir 500 mg tablet 500 mg PO DAILY Patient Comments: TAKE 2 TABLETS BY MOUTH NEEDED FOR 3 DAYS AT HERPES OUTBREAK calcium carbonate 600 MG tablet 600 mg PO BID Patient Comments: Supplement montelukast 10 MG tablet 10 mg PO QHS Patient Comments: Breathing vitamin B complex 1 EACH capsule 1 ea PO DAILY Patient Comments: supplement cholecalciferol (vitamin D3) 1,000 UNIT tablet 2,000 unit PO DAILY Patient Comments: supplement atorvastatin 40 MG tablet 10 mg PO QHS Patient Comments: cholesterol spironolactone 25 tablet 25 mg PO DAILY ascorbic acid (vitamin C) 1,000 MG tablet 1,000 mg PO DAILY omeprazole 20 MG capsule 20 mg PO DAILY fluticasone propionate 1 SPRAY spray,suspension 2 sprays NASAL DAILY omega [id number] oil 500 MG capsule,delayed release(DR/EC) 500 mg PO DAILY aspirin 81 MG tablet 81 mg PO DAILY@0800 Patient Comments: heart health Rx Instructions: take one tablet daily for stroke prevention polysaccharide iron complex 150 MG capsule 150 mg PO DAILYCM Qty: 30 0RF albuterol sulfate 2.5 mg /3 mL (0.083 %) solution for nebulization 2.5 mg inhalation Q6H PRN (Reason: Shortness Of Breath Or Wheezing) Patient Comments: USE 1 VIAL IN NEBULIZER EVERY 6 HOURS NEEDED FOR WHEEZING AND FOR SHORTNESS OF BREATH gabapentin 300 mg Tablet 300 mg PO QHS lorazepam 0.5 MG tablet 0.5 mg PO BID PRN (Reason: Anxiety) fluoxetine 10 mg Capsule 10 mg PO DAILY meclizine 25 mg tablet 25 mg PO TID PRN (Reason: dizziness) Qty: 20 0RF Primary Care Provider: Jorge Carbajal Referrals: Jorge Carbajal DO [Primary Care Provider, Medical] - As Needed Activity Restrictions/Additional Instructions: Tylenol for pain. Ice to your face and nose. This should progressively improve. Return if intractable vomiting or not acting right. Follow-up with your doctor as needed. Print Language: Kinyarwanda Disposition Disposition: Home, Self Care
[2025-05-23 16:00] VITALS: BP 150/48; PULSE 86; RESP 16; O2SAT 98
[2025-05-23 16:41] VITALS: BP 150/84; PULSE 90; RESP 16; TEMP 36.6; O2SAT 100
== END 2025-05-23 16:43 | disposition home or self-care (01) ==
LOC: ED 15:40
PROVIDERS: Emergency Provider Emergency Medicine; PCP Student in an Organized Health Care Education/Training Program; Visit Provider Emergency Medicine
DX: S02.2XXA Fracture of nasal bones, initial encounter for closed fracture (principal); W01.0XXA Fall on same level from slipping, tripping and stumbling without subsequent striking against object, initial encounter
CPT/HCPCS: 70450; 70486; 99282